=== PATIENT | male | born 1950 | race African-American/Black ===

== ENCOUNTER 2016-08-09 09:57 | Inpatient (IN) ==
[2016-08-09] MEDS ORDERED: ONDANSETRON 4 MG/2 ML VIAL IV STA (10:21)
[2016-08-09] MEDS ORDERED: hydrALAZINE 20 MG/1 ML VIAL IV STA (10:21)
[2016-08-09] MEDS ORDERED: ASPIRIN 325 MG TABLET PO STA (10:21)
[2016-08-09] MEDS ORDERED: NITROGLYCERIN 2% OINT 1 INCH/GM PACK TOP STA (10:21)
[2016-08-09] MEDS ORDERED: MORPHINE 2 MG/1 ML SYRINGE IV STA (10:21)
--- NOTE | 2016-08-09 10:26 | EKG Report ---
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
--- NOTE | 2016-08-09 10:44 | Emergency Department Note ---
Darryn Holley Brittany, am scribing for, and in the presence of, Jaret Hudson MD 10:28. Becca Holley Charles R, MD, personally performed the services described in this documentation, ascribed by Pinky Cates in my presence, and it is both accurate and complete 043 . Arrival - Arrival Chief Complaint: Chest Pain Stated Complaint: Chest Pains ED Nursing Triage Note: Pt c/o Chest pain, SOB worse with exertion, and cough x 1.5 wks. Mode of Arrival: Ambulatory Limitations: No Limitations Source: Patient, Family Time Seen by Provider: 08/09/16 10:17 - History of Present Illness HPI Narrative: This is an obese 65 y/o black male,who presents to the ED with c/o CP which started 1 week ago. He localizes the pain to the upper right chest area. He describes the pain as a pressure type of pain and rates the pain an 8 out of 10. He states he is SOB with the chest pain. He reports exertion makes the chest pain and dyspnea worse. Pt has no other complaints/pain in the ED at this time. Pt has a PMHx of ME, GERD, renal failure, HTN, and obstructive sleep apnea. Pt denies a surgical hx. Pt denies a family medical Hx. Pt denies a social Hx. Onset (ago): week(s) (Started 1 week ago) Consistency: constant Severity: moderate Severity scale (1-10): 8 Quality: other (pressure) Allergies/Adverse Reactions: Allergies Allergy/AdvReac Type Severity Reaction Status Date / Time Penicillins Allergy RASH Verified 08/09/16 10:06 Home Medications: Home Medications Medication Instructions Recorded Confirmed Type Allopurinol 300 mg PO DAILY 08/09/16 08/09/16 History Atorvastatin [Lipitor] 10 mg PO BEDTIME 08/09/16 08/09/16 History Finasteride [Proscar] 5 mg PO DAILY 08/09/16 08/09/16 History Fluticasone 50 Mcg Nasal [place] 2 spray BOTH NARES DAILY 08/09/16 08/09/16 History [Flonase Nasal [place]] Furosemide Tab [Lasix Tab] 40 mg PO TID 08/09/16 08/09/16 History Magnesium Oxide [Magnesium] 400 mg PO DAILY 08/09/16 08/09/16 History Minoxidil 5 mg PO DAILY 08/09/16 08/09/16 History Nebivolol [Bystolic] 40 mg PO DAILY 08/09/16 08/09/16 History Omeprazole 20 mg PO QAM 08/09/16 08/09/16 History Potassium Chloride [K-Tab ER] 10 meq PO BID W/MEALS 08/09/16 08/09/16 History Tamsulosin [Flomax] 0.4 mg PO PC SUPPER 08/09/16 08/09/16 History Valsartan/Hydrochlorothiazide 1 each PO QAM 08/09/16 08/09/16 History [Valsartan-Hctz 320-25 mg Tab] Warfarin [Coumadin] 7.5 mg PO DAILY 08/09/16 08/09/16 History amLODIPine [Norvasc] 5 mg PO DAILY 08/09/16 08/09/16 History Review of System - Review of System 12 point system: reviewed and no additional remarkable complaints except as stated - Review of System Cardiovascular: Present: chest pain, dyspnea on exertion Medical,Surgical,& Family Hx - Medical History Cardio: History of: Hypertension, ME, Cardiovascular Problems ([place]) Respiratory: History of: Obstructive Sleep Apnea Renal: History of: Renal Failure (Dr Lovell No Dialysis) Gastrointestinal: History of: GERD - Social History Smoking Status: Never smoker Exam Vital Signs: Vital Signs Temperature 97.8 F 08/09/16 10:04 Pulse Rate 50 L 08/09/16 10:04 Respiratory Rate 24 08/09/16 10:04 Blood Pressure 201/95 08/09/16 10:04 O2 Sat by Pulse Oximetry 98 08/09/16 10:04 - General General appearance: alert, in no apparent distress, obese - Head Head exam: Present: atraumatic, normocephalic, normal inspection - Eye Eye exam: Present: normal appearance, PERRL, EOMI. Absent: nystagmus, miosis, mydriasis - ENT ENT exam: Present: normal exam, normal oropharynx, mucous membranes moist - Neck Neck exam: Present: normal inspection, full ROM, trachea midline. Absent: tenderness, meningismus, lymphadenopathy, thyromegaly - Chest Chest inspection: Present: normal inspection, symmetric chest wall rise. Absent : tenderness, rash, abscess - Respiratory Respiratory exam: Present: rales (Bibasilar rales) - Cardiovascular Cardiovascular exam: Present: normal rhythm, bradycardia, normal heart sounds - Abdominal Exam Abdominal exam: Present: soft, normal bowel sounds. Absent: distention, tenderness, guarding, rebound, rigidity - Rectal Exam Rectal exam: Present: deferred - Extremities Exam Extremities exam: Present: normal capillary refill, pedal edema (+2 lower extermity pedal edeam). Absent: tenderness, joint swelling, calf tenderness - Back Exam Back exam: Present: normal inspection, full ROM. Absent: tenderness, muscle spasm, rashes - Neurological Exam Neurological exam: Present: alert, oriented X3, CN II-XII intact. Absent: motor sensory deficit - Psychiatric Psychiatric exam: Present: normal affect, normal mood. Absent: depressed, agitated, anxious, manic - Skin Skin exam: Present: warm, dry, intact, normal color. Absent: rash, cyanosis, diaphoresis, erythema, pallor, mottled Course - Consultations Consultation #1: Spoke to Dr. Richards will admit the patient. We did 2 EKGs because there is change noticed in the emergency room. Patient does not currently have any chest pain on the second EKG. There is some mild T-wave inversions or ST segment changes. She recommended placing to the hospital for admission she will evaluate him further this is also her patient, but there is no evidence of any ST elevation ME at this current time Time: 11:45 Results - Labs CBC & BMP: 08/09/16 11:03 08/09/16 11:03 - Diagnostic Findings Procedure: Chest x-ray: report reviewed by me (Moderate cardiomegaly without clara pulmonary edema. ) Critical Care Time Critical Care Time: Yes Total Critical Care Time: 60 Disposition Clinical Impression: Chest pain, Unstable angina, Hypertensive urgency, Bradycardia, Abnormal EKG, Chronic renal failure Case discussed with: patient, patient's family Disposition: Still a Patient Condition: Guarded Time of Disposition: 11:46
[2016-08-09 11:12] LABS: Basophils % 0.4 % (0.0-0.8); Eosinophils # 0.2 10*3/uL (0.0-0.87); Eosinophils % 4.8 % (0.00-10.9); Hematocrit 40.5 VOL% (42.0-52.0); Hemoglobin 12.9 GM/DL (14.0-18.0); Immature Granulocytes % 0.2 %; Immature Granulocytes Absolute 0.01 #; Lymphocytes # 1.2 10*3/uL (1.4-4.0); Mean Corpuscular HGB Conc 31.9 GM/DL (32-36); Mean Corpuscular Hemoglobin 27 PG (27-34); Mean Corpuscular Volume 84.2 FL (87-102); Mean Platelet Volume 12.2 FL (9.6-12.0); Monocytes # 0.3 10*3/uL (0.11-0.8); Neutrophils % 62.6 % (38.7-73.9); Platelet Count 173 T/CUMM (130-400); Red Blood Count 4.81 MC/CUMM (3.8-5.5); Red Cell Distribution Width 14.3 % (9.3-17.3); White Blood Count 4.8 T/CUMM (4-12)
--- NOTE | 2016-08-09 11:14 | XRay Report ---
XR chest 1V portable Indication: Chest pain Comparison: None Technique: Frontal views of the chest Findings: Moderate cardiomegaly. Chronic change of the lungs without focal consolidation, pleural effusion, or pneumothorax. Osseous and surrounding soft tissue structures demonstrate no acute abnormality. IMPRESSION: Moderate cardiomegaly without clara pulmonary edema. PROCEDURE INTERPRETED AT [facility] DEPARTMENT OF RADIOLOGY Final Report Signed by: Dr Dick Holbrook
[2016-08-09 11:20] LABS: INR 1.2; PT Patient Result 13.1 SECS
[2016-08-09] MEDS ORDERED: ASPIRIN 325 MG TABLET ONE (11:33)
[2016-08-09] MEDS ORDERED: NITROGLYCERIN 2% OINT 1 INCH/GM PACK TOP ONE (11:33)
[2016-08-09] MEDS ORDERED: hydrALAZINE 20 MG/1 ML VIAL ONE (11:33)
[2016-08-09] MEDS ORDERED: MORPHINE 2 MG/1 ML SYRINGE ONE (11:33)
[2016-08-09] MEDS ORDERED: ONDANSETRON 4 MG/2 ML VIAL ONE (11:40)
[2016-08-09 11:41] LABS: Albumin 3.2 G/DL (3.4-5.0); Bilirubin,Total 0.5 MG/DL (0.2-1.0); Calcium 8.3 MG/DL (8.5-10.1); Magnesium 1.7 MG/DL (1.8-2.4); Osmolality,Calculated 294.8 MOS/KG (273-304); Potassium 4.3 MMOL/L (3.5-5.1)
[2016-08-09] MEDS ORDERED: MAGNESIUM CHLORIDE 64 MG TABLET PO STA (11:47)
[2016-08-09] MEDS ORDERED: MAGNESIUM CHLORIDE 64 MG TABLET PO ONE (11:50)
--- NOTE | 2016-08-09 13:03 | Cardiology History & Physical ---
<Alejandra Chou E - Last Filed: 08/09/16 13:03> Assessment and Plan - Time spent with patient Time spent with patient: Greater than 30 minutes (1) Hx pulmonary embolism Status: Chronic Assessment and plan: SEE PLAN OF CARE LISTED BELOW Current Visit: Yes (2) High risk medication use Status: Chronic Assessment and plan: SEE PLAN OF CARE LISTED BELOW Current Visit: Yes (3) Dyslipidemia Status: Chronic Assessment and plan: SEE PLAN OF CARE LISTED BELOW Current Visit: Yes (4) Morbid obesity Status: Chronic Assessment and plan: SEE PLAN OF CARE LISTED BELOW Current Visit: Yes (5) Sleep apnea Status: Chronic Assessment and plan: SEE PLAN OF CARE LISTED BELOW Current Visit: Yes (6) Shortness of breath Status: Acute Assessment and plan: SEE PLAN OF CARE LISTED BELOW Current Visit: Yes (7) Bradycardia Status: Acute Current Visit: Yes (8) Chest pain Status: Acute Assessment and plan: SEE PLAN OF CARE LISTED BELOW Current Visit: Yes (9) Chronic renal failure Status: Chronic Assessment and plan: SEE PLAN OF CARE LISTED BELOW Current Visit: Yes Qualifiers: Chronic kidney disease stage: stage 4 (severe) Qualified Code(s): N18.4 - Chronic kidney disease, stage 4 (severe) History of Present Illness Chief complaint: Chest pain, shortness of breath History of present illness: Patient is being seen in the emergency department Mr. Quintana is a 65 year old male routinely followed by Dr. Fernanda Richards. Risk factors include: Hypertension, dyslipidemia, morbid obesity, sedentary lifestyle, history of CVA. He also has a history of pulmonary embolism 2000 for which she has taken Coumadin since that time. Also history of obstructive sleep apnea, reports good compliance. History of chronic renal insufficiency, class IV, followed by Dr. Lovell. Patient presented to the emergency department at [facility] today after experiencing excruciating shortness of breath and chest heaviness this morning. In retrospect, patient identifies that he has had chest discomfort and shortness of breath for approximately 1 week. However, this morning while walking across a parking lot he began to experience excruciating symptoms located on the right side of his chest. He is unable to write the discomfort on a scale of 1-10. There was no radiation, nausea or vomiting. He did become somewhat diaphoretic he reports. He acknowledges that it was more painful when taking a deep breath initially but this is improved as well. Although it has been occurring intermittently for the past week, he states that walking certainly does re-create the discomfort. Rest and Nitropaste today relieve the discomfort. He is currently chest pain-free. Tropoinin, first draw, negative. EKG does not reveal a STEMI. Patient has a history of pulmonary embolism diagnosed around 2000. He reports he is taking Coumadin ever since. He is uncertain if he was ever diagnosed with a second or recurrent pulmonary embolism. Denies a history of DVT. His INR subtherapeutic at 1.2 on arrival. He reports good compliance having not missed any of his scheduled doses of Coumadin. He has had no recent change in his bilateral lower extremity swelling. He has mild chronic edema of his lower extremities but does not recognize that this is been worse or that any extremity has been tender recently. Creatinine 5.4 today. He actually had an appointment and saw Dr. Lovell this morning. Her patient's report, Dr. Lovell recommended begin the process for hemodialysis. Patient is reluctant at this time. I have discussed with Dr. Fernanda Richards. Given the patient's history of prior pulmonary embolism with subtherapeutic INR, troponin within normal limits , we will proceed with VQ lung scan immediately. I will verify the patient has had aspirin 325 mg orally as well as Lovenox 30 mg subcu (given his severe renal insufficiency). Will await further recommendations from Dr. Richards Most recent cardiac catheterization occurred January 22, 2014 with the following impression noted: 1. Technically difficult study due to habitus, large coronary arteries with brisk runoff, underlying renal insufficiency. 2. Moderate coronary atherosclerosis with 50% angiographic stenosis of the mid LAD that was difficult to lie out, FFR 0.94. 3. Right dominant coronary arteries. 4. Ejection fraction 55%. 5. Angiographically normal right iliac artery without evidence of vascular complication Most recent echocardiogram September 02, 2013 reveals the following: Normal LV systolic function without significant valvular abnormality. Moderate concentric left ventricular hypertrophy with moderate left atrial enlargement noted ASSESSMENT/PLAN: 1. CHEST PAIN -certainly this could be a component of angina. First draw from troponin is negative. Will proceed with VQ lung scan given the patient's severe renal insufficiency. 2. HISTORY OF PULMONARY EMBOLISM -subtherapeutic INR. Will adjust medications accordingly during the hospital stay. He may be better suited for NOAC. 3. HYPERTENSION -adjust medications accordingly during the hospital stay. Avoiding KISHORE inhibitors due to fear of worsening his renal insufficiency 4. DYSLIPIDEMIA -continue lipid-lowering agent. Lipid profile in the morning 5. CLASS IV CRI -will consult Dr. Lovell as needed during the hospital stay 6. OBSTRUCTIVE SLEEP APNEA -discussed with his . She will ask family members to bring his CPAP device to be used every night while hospitalized. 7. CLASS III OBESITY - dietary instruction prior to discharge. 8. SOB - multifactorial but we will start with VQ Lung scan as troponin is negative. 9. BRADYCARDIA - appears to be sinus. Hold gabrielle blocking agents and adjust meds during hospital stay. Home Medications Medication Instructions Recorded Confirmed Type Allopurinol 300 mg PO DAILY 08/09/16 08/09/16 History Atorvastatin [Lipitor] 10 mg PO BEDTIME 08/09/16 08/09/16 History Finasteride [Proscar] 5 mg PO DAILY 08/09/16 08/09/16 History Fluticasone 50 Mcg Nasal [place] 2 spray BOTH NARES DAILY 08/09/16 08/09/16 History [Flonase Nasal [place]] Furosemide Tab [Lasix Tab] 40 mg PO TID 08/09/16 08/09/16 History Magnesium Oxide [Magnesium] 400 mg PO DAILY 08/09/16 08/09/16 History Minoxidil 5 mg PO DAILY 08/09/16 08/09/16 History Nebivolol [Bystolic] 40 mg PO DAILY 08/09/16 08/09/16 History Omeprazole 20 mg PO QAM 08/09/16 08/09/16 History Potassium Chloride [K-Tab ER] 10 meq PO BID W/MEALS 08/09/16 08/09/16 History Tamsulosin [Flomax] 0.4 mg PO PC SUPPER 08/09/16 08/09/16 History Valsartan/Hydrochlorothiazide 1 each PO QAM 08/09/16 08/09/16 History [Valsartan-Hctz 320-25 mg Tab] Warfarin [Coumadin] 7.5 mg PO DAILY 08/09/16 08/09/16 History amLODIPine [Norvasc] 5 mg PO DAILY 08/09/16 08/09/16 History Allergies Allergy/AdvReac Type Severity Reaction Status Date / Time Penicillins Allergy RASH Verified 08/09/16 10:06 Review of systems: REVIEW OF SYSTEMS: - Constitutional Constitutional: Present: Fatigue. Absent: syncope, anorexia, night sweats - EENT Eyes: Absent: blurry vision, loss of vision, diplopia Ears: Absent: decreased hearing, ear pain, ear discharge - Cardiovascular Cardiovascular: Present: chest pain with exertion, dyspnea on exertion, edema, chest pain with deep breath. Denies palpitations or claudication - Respiratory Respiratory: Present: VALENTINO, denies cough, hemoptysis. Absent: wheezing, change in phlegm color - Gastrointestinal Gastrointestinal: Denies: constipation. Absent: abdominal pain, hematemesis, hematochezia, melena, change in bowel habits, nausea - Genitourinary Genitourinary: Absent: difficulty urinating, dysuria, urinary hesitancy, flank pain - Musculoskeletal Musculoskeletal: Present: back pain, knee pain absent: joint swelling, muscle cramps, muscle weakness - Neurological Neurological: Present: normal gait without frequent falls. Absent: dizziness, hemiparesis - Psychiatric Psychiatric: Absent: anxiety, depression, difficulty concentrating - Endocrine Endocrine: Present: fatigue. Absent: cold intolerance, heat intolerance, polyuria, polyphagia, polydipsia - Hematologic/Lymphatic Hematologic/Lymphatic: Present: easy bruising. Absent: easy bleeding -Integumentary Integumentary: Absent: lesions, rashes, skin breakdown Medical,Surgical,& Family Hx - Medical History Cardio: History of: Hypertension No history of: Cardiac Dysrhythmia Endocrine: History of: Dyslipidemia Respiratory: History of: Obstructive Sleep Apnea, Pulmonary Embolism Renal: History of: Renal Failure (Dr Lovell No Dialysis) Gastrointestinal: History of: GERD No history of: Gastrointestinal Bleed, Hematochezia, Gastrointestinal Cancer - Surgical History Cardiac Surgeries: Sugical HX of: Cardiac Catheterization Abdominal Surgeries: Surgical HX of: Cholecystectomy - Social History Smoking Status: Never smoker Have you smoked in the last 12 months: No Frequency of Alcohol Use: None Marital Status: Lives With:: Spouse Functional capacity: independent ambulation Cardiology Physical Exam - Constitutional Vitals: Vital Signs Temp Pulse Resp BP Pulse Ox 97.8 F 50 L 22 201/95 98 08/09/16 12:17 08/09/16 12:17 08/09/16 12:24 08/09/16 12:17 08/09/16 10:04 Exam: General: [Appears well with no apparent distress.] [Pleasant and cooperative. ] [Appears comfortable.] HEENT: [Bilateral arcus, normocephalic, atraumatic. Mucous membranes moist. No jaundice noted. Conjunctiva moist and clear, sclerae anicteric] Neck: Difficult to assess for JVD due to habitus. No thyromegaly or lymphadenopathy noted. No carotid bruit appreciated Cardiac: [Distant tones but regular rate and rhythm.] [No obvious murmur rub or gallop.] Chest nontender to touch. Lungs: [Clear to auscultation without accessory muscle use to assist the respiratory pattern.] Using oxygen intermittently Abdomen: Soft, bowel sounds normoactive. Nontender and nondistended. No abdominal bruit or thrill noted. No masses noted. Musculoskeletal: No fluid collection. Decreased range of motion is noted. Extremities: No clubbing, cyanosis noted. [Trace bilateral lower extremity edema] Upper extremity pulses 2+. Lower extremity pulses 1+. Capillary refill less than 3 seconds. Skin: No unusual lesions or rashes. No skin breakdown appreciated. Neuro: Awake, alert and oriented 3. Moves all extremities well without hemiparesis or paralysis. No essential tremor is appreciated. Result/EKG - Labs CBC & BMP: 08/09/16 11:03 08/09/16 11:03 Lab Results: I have reviewed the past 24 hour labs - Diagnostic Findings Procedure: Chest x-ray: report reviewed by me - EKG EKG results: interpreted by mt EKG shows: sinus rhythm <Fernanda Richards - Last Filed: 08/09/16 14:44> History of Present Illness History of present illness: I have personally interviewed and evaluated the patient, reviewed the chart and discussed medical decision-making with Practitioner José Antonio. I have read this note and agree with her documentation here in. VQ scan overall was indeterminate. He will not necessarily change her management since he has been on chronic anticoagulation. We will need to restart this when it is appropriate. We are going to start him on a heparin drip to cover both possible pulmonary wasn't an acute coronary syndrome. His symptoms are concerning for worsening coronary disease we discussed at length the risks, role and benefits of cardiac catheterization emphasizing the risk of worsening renal failure, possibly requiring dialysis. We discussed that this was a highly likely probability from cardiac CABG in. In general he does not want to go hemodialysis call if he doesn't have to". However, at the conclusion of our discussion he accepts the risks of dialysis and sepsis this clinically indicated. We will consult Dr. Lovell. I'm going to calcification with minimal carbonated IV fluids, we will try to minimize the amount of contrast he receives. Echocardiogram at the bedside and I will report that in the echo system. I also discussed this with the patient's and we discussed importance with point and with Coumadin follow-up. I emphasized that his INR must always be checked at a minimum once a month when everything is going well, even if no DrFang has directed this. We will establish him in the Coumadin clinic at discharge. Cardiology Physical Exam - Constitutional Vitals: Vital Signs Temp Pulse Resp BP Pulse Ox 97.8 F 52 L 20 164/78 97 08/09/16 13:30 08/09/16 13:30 08/09/16 13:30 08/09/16 13:30 08/09/16 13:30 Intake and Output 08/08/16 08/09/16 08/09/16 23:59 07:59 15:59 Other: Weight 166.015 kg Patient Weight 08/09/16 23:59 Weight 166.015 kg Exam: Bilateral lower extremity edema is 1+. Result/EKG - Labs CBC & BMP: 08/09/16 11:03 08/09/16 11:03
[2016-08-09] MEDS ORDERED: MAGNESIUM SULF RIDER 4 GM in PREMIX 1 EACH IV PRN (13:29)
[2016-08-09] MEDS ORDERED: MORPHINE 2 MG/1 ML SYRINGE IV PRN (13:29)
[2016-08-09] MEDS ORDERED: GLUCAGON 1 MG VIAL IM PRN (13:29)
[2016-08-09] MEDS ORDERED: MAGNESIUM SULF RIDER 2 GM in PREMIX 1 EACH IV PRN ×2 (13:29→14:42)
[2016-08-09] MEDS ORDERED: hydrALAZINE 20 MG/1 ML VIAL IV PRN (13:29)
[2016-08-09] MEDS ORDERED: ONDANSETRON 4 MG/2 ML VIAL IV PRN (13:29)
[2016-08-09] MEDS ORDERED: DEXTROSE 50% 25 GM/50 ML VIAL IV PRN (13:29)
[2016-08-09] MEDS ORDERED: SODIUM CHLORIDE 0.9% 1,000 ML IV SCH (13:29)
[2016-08-09] MEDS ORDERED: POTASSIUM CHLORIDE 20 MEQ TABLET PO PRN (13:29)
--- NOTE | 2016-08-09 13:34 | EKG Report ---
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
--- NOTE | 2016-08-09 13:35 | Nuclear Medicine Report ---
NM lung scan vent and per Indication: Chest pain. History of PE. Shortness of breath. VENTILATION/PERFUSION LUNG SCAN: Planar imaging of the lungs was obtained after the IV administration of 5 mCi technetium 99m labeled MAA, and aerosol administration of 40 mCi technetium 99m labeled DTPA. Comparison: None. Findings: Imaging limited to the anterior planes. There is a large perfusion defect involving the anterior segment right upper lobe that is normal on ventilatory imaging and shows no regional abdomen on the on chest x-ray. No other perfusion defects are shown. Impression: Based on modified PIOPED criteria, intermediate probability for PE (20-79% probability of acute PE), anterior segment right upper lobe. PROCEDURE INTERPRETED AT [facility] DEPARTMENT OF RADIOLOGY Final Report Signed by: Judd Palomares M.D.
[2016-08-09] MEDS ORDERED: ENOXAPARIN 30 MG/0.3 ML SYRINGE SUBCUT ONE (13:41)
[2016-08-09] MEDS ORDERED: ENOXAPARIN 30 MG/0.3 ML SYRINGE ONE (13:47)
[2016-08-09] MEDS ORDERED: POTASSIUM CHLORIDE RIDER 10 MEQ in PREMIX 1 EACH IV PRN (14:42)
--- NOTE | 2016-08-09 15:30 | Ultrasound Report ---
US venous doppler LE BI Indication: Chest pain, SOB, and noncompliance with anticoagulation. Comparison: None. Technique: Grayscale, spectral, and color Doppler interrogation of the bilateral lower extremity veins was performed. Augmentation and compression was performed. Findings: Grayscale, color Doppler, and pulsed Doppler evaluation of the veins of the bilateral lower extremity demonstrate no evidence of deep venous thrombosis. IMPRESSION: No evidence of deep venous thrombosis in the bilateral lower extremity. PROCEDURE INTERPRETED AT [facility] DEPARTMENT OF RADIOLOGY Final Report Signed by: Dr Dick Holbrook
[2016-08-09] MEDS: HEPARIN DRIP 25,000 UNITS/500 ML PREMIX IV SCH (16:07)
[2016-08-09] MEDS: ACETYLCYSTEINE 600 MG CAPSULE PO SCH ×2 (16:08→21:22)
[2016-08-09] MEDS: SODIUM BICARB INJ 100 MEQ in SODIUM CHLORIDE 0.45% 1,000 ML IV SCH (16:08)
[2016-08-09] MEDS: FUROSEMIDE 40 MG TABLET PO SCH ×2 (16:08→21:22)
[2016-08-09] MEDS: INSULIN REGULAR 100 UNIT/ML SUBCUT SCH ×2 (16:57→21:22)
[2016-08-09] MEDS: TAMSULOSIN 0.4 MG CAPSULE PO SCH (17:46)
[2016-08-09] MEDS: NITROGLYCERIN 2% OINT 1 INCH/GM PACK TOP SCH (17:47)
[2016-08-09] MEDS: POTASSIUM CHLORIDE 10 MEQ TABLET PO SCH (17:47)
[2016-08-09] MEDS: ATORVASTATIN 10 MG TABLET PO SCH (21:22)
[2016-08-09 23:57] LABS: INR 1.3; PT Patient Result 14.3 SECS
[2016-08-10 00:13] LABS: Partial Thromboplastin Time 145.9 SECS (0-40)
[2016-08-10] MEDS: NITROGLYCERIN 2% OINT 1 INCH/GM PACK TOP SCH ×4 (00:36→17:35)
[2016-08-10] MEDS: SODIUM BICARB INJ 100 MEQ in SODIUM CHLORIDE 0.45% 1,000 ML IV SCH ×2 (03:04→17:34)
--- NOTE | 2016-08-10 03:06 | ECHO Report ---
Nicholas Quintana Exam Date: 08/09/2016 14:04 Referring Physician: Technologist: Belkis Gatica EVANGELIST Age: 65 Ht (in): 73 Wt (lb): 371 Gender: M Exam Location: [facility] Echo Indications: Shortness of breath, Chest pain, unspecified, Hypertensive HTN, Sleep apnea, Morbid (severe) obesity due to excess calories, Dyslipidemia, High risk meds, Chronic kidney disease, stage 4 (severe), Bradycardia, unspecified BP: 201 / 95 HR: 47 Rhythm: Sinus Technical Quality: Poor IMPRESSIONS Normal LV systolic function, ejection fraction 60%. Grade 1/4 diastolic dysfunction. Moderate to severe concentric left ventricular hypertrophy. Moderate left atrial enlargement. Mild mitral, aortic and tricuspid regurgitation. Pulmonary artery pressure estimated at 60 mmHg. MEASUREMENTS (Male / Female) Normal Values 2D ECHO LV Diastolic Diameter PLAX 5.1 cm 4.2 - 5.9 / 3.9 - 5.3 cm LV Systolic Diameter PLAX 2.4 cm LV Fractional Shortening PLAX 52.4 % IVS Diastolic Thickness 1.6 cm 0.6 - 1.0 / 0.6 - 0.9 cm LVPW Diastolic Thickness 2.0 cm 0.6 - 1.0 / 0.6 - 0.9 cm RV Internal Dim ED PLAX 2.6 cm Aortic Root Diameter 3.3 cm LA Systolic Diameter LX 5.5 cm 3.0 - 4.0 / 2.7 - 3.8 cm DOPPLER TR Peak Velocity 352.0 cm/s TR Peak Gradient 49.6 mmHg FINDINGS Left Ventricle Normal left ventricular cavity size. Moderate to severe left ventricular hypertrophy. Left ventricular ejection fraction is estimated at 60 %. Right Ventricle Normal size and function. Right Atrium Normal size. Left Atrium Moderately increased left atrial size. Mitral Valve Morphologically normal mitral valve. Mild mitral valve regurgitation. Aortic Valve The aortic valve is trileaflet and has normal motion. Mild aortic valve regurgitation. Tricuspid Valve Morphologically normal tricuspid valve. Mild tricuspid valve regurgitation. Tricuspid regurgitation velocities suggest a PAP of 60 mmHg. Pulmonic Valve Not well seen. Pericardium No significant effusion. Aorta Normal caliber. Fernanda Richards MD (Electronically Signed) Final Date: 10 August 2016 03:05
[2016-08-10] MEDS ORDERED: DIAZEPAM 5 MG TABLET PO ONE (07:00)
[2016-08-10] MEDS ORDERED: diphenhydrAMINE CAP 25 MG CAPSULE PO ONE (07:00)
[2016-08-10 07:02] LABS: Basophils % 0.2 % (0.0-0.8); Eosinophils # 0.3 10*3/uL (0.0-0.87); Eosinophils % 5.1 % (0.00-10.9); Immature Granulocytes % 0.4 %; Immature Granulocytes Absolute 0.02 #; Lymphocytes # 1.3 10*3/uL (1.4-4.0); Lymphocytes % 24.8 % (21.2-54.2); Mean Corpuscular HGB Conc 32.4 GM/DL (32-36); Mean Corpuscular Hemoglobin 27 PG (27-34); Mean Platelet Volume 12.5 FL (9.6-12.0); Monocytes # 0.3 10*3/uL (0.11-0.8); Monocytes % 6.3 % (1.7-12.7); Neutrophils # 3.3 10*3/uL (1.4-7.4); Neutrophils % 63.2 % (38.7-73.9); Platelet Count 165 T/CUMM (130-400); Red Blood Count 4.51 MC/CUMM (3.8-5.5); Red Cell Distribution Width 14.3 % (9.3-17.3); White Blood Count 5.3 T/CUMM (4-12)
--- NOTE | 2016-08-10 07:23 | EKG Report ---
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
[2016-08-10 07:41] LABS: Albumin 2.8 G/DL (3.4-5.0); Bilirubin,Total 0.8 MG/DL (0.2-1.0); Calcium 8.1 MG/DL (8.5-10.1); Magnesium 1.7 MG/DL (1.8-2.4); Risk Ratio 2.26; Total Protein 6.2 G/DL (6.4-8.3); VLDL CHOLESTEROL 9.8 MG/DL
[2016-08-10] MEDS: INSULIN REGULAR 100 UNIT/ML SUBCUT SCH ×4 (07:43→20:56)
[2016-08-10 08:02] LABS: INR 1.4; PT Patient Result 15.4 SECS
--- NOTE | 2016-08-10 08:31 | XRay Report ---
Exam: Chest 2 views Date: August 10, 2016 at 8:12 AM Comparison: Chest one view portable August 09, 2016 Reason: Shortness of breath Findings: The cardiac silhouette is again enlarged. No focal consolidation, pneumothorax or pleural effusion is identified. No acute osseous process is seen. Surgical clips are noted within the right abdomen. Impression: 1. Cardiomegaly. 2. No acute pulmonary process is identified. PROCEDURE INTERPRETED AT [facility], [place] DEPARTMENT OF RADIOLOGY Final Report Signed by: Dr. Christ Pakr
[2016-08-10 08:37] LABS: Partial Thromboplastin Time > 320.0 SECS (0-40)
[2016-08-10] MEDS ORDERED: PANTOPRAZOLE 40 MG TABLET PO SCH (09:00)
[2016-08-10] MEDS: ASPIRIN EC 325 MG TABLET PO SCH (09:38)
[2016-08-10] MEDS: amLODIPine 5 MG TABLET PO SCH (09:38)
[2016-08-10] MEDS ORDERED: SODIUM BICARBONATE 2.4 MEQ/5 ML VIAL ONE (09:48)
[2016-08-10] MEDS ORDERED: HEPARIN/NACL 0.9% 2 UNITS/ML 1,000 ML IV ONE (09:48)
[2016-08-10] MEDS ORDERED: LIDOCAINE 1% 20 ML VIAL ONE (09:48)
[2016-08-10] MEDS ORDERED: MIDAZOLAM 2 MG/2 ML VIAL ONE (09:55)
[2016-08-10] MEDS ORDERED: fentaNYL 100 MCG/2 ML VIAL ONE (09:56)
--- NOTE | 2016-08-10 10:10 | History and Physical Update ---
Sedation H&P Update - History and Physical H&P was reviewed, the patient examined and there: are no changes in the patients condition since last H&P was completed. - Dictation Physical: refer to H&P completed by admitting physician - Physical Exam Mental Status: alert and oriented Heart: regular rate and rhythm Lung: clear to auscultation Abdomen: within normal limits Vitals: within normal limits - Sedation Plan for Sedation: moderate Patient Consent: Procedure disscussed with patient and patinet has consented., Risks and benefits were discussed with patient,including infection,, bleeding, injury to surrounding structures, seizure, temporary nerve, Patient understands and accepts potential risks/benefits and agrees to, proceed. ASA Class: IV Airway Assessment: Class III: Soft palate, base of uvula visible
[2016-08-10] MEDS ORDERED: ACETAMINOPHEN/CODEINE 300-30 MG TABLET PO PRN (10:52)
[2016-08-10] MEDS ORDERED: ACETAMINOPHEN 325 MG TABLET PO PRN (10:52)
[2016-08-10] MEDS ORDERED: NITROGLYCERIN SL 0.4 MG TABLET SL PRN (10:52)
--- NOTE | 2016-08-10 11:14 | Event Note ---
Evening was uneventful. Crit catheterization did not show any significant obstructive coronary artery disease. His symptoms may have been from pulmonary embolism, VQ scan was not very helpful. However he does have morbid obesity, history of pulmonary embolism and was profoundly subtherapeutic on his INR. He will need treatment with anticoagulation regardless, and given his renal failure it would not be worthwhile to pursue a CT scan to further define this. We have also really started his proton pump inhibitor. We will observe his renal function and restart his anticoagulation.
--- NOTE | 2016-08-10 11:16 | Cardiology Operative Report ---
Date of Procedure:: 08/10/16 Pre-op diagnosis: CAD, CP, SOB Post-op diagnosis: other Procedure: 1. Selective left and right coronary angiography. 2. Left heart catheterization with left ventriculogram. 3. Right iliac angiography to rule out vascular complications. 4. Application mucostasis device to the right femoral arteriotomy site. Impression: 1. Mild coronary atherosclerosis. 2. Right dominant coronary arteries. 3. Angiographically normal right iliac artery without evidence of vascular complications. Plan: 1. Medical management. 2. Noncardiac workup. Equipment: Diagnostic 6 Amharic JL4, JR4, pigtail catheters. Hemodynamics: Aortic pressure 147/77 mmHg, left ventricular pressure 145/8 mmHg, LVEDP 17 mmHg Sedation: Versed 1 mg, fentanyl 25 g. Procedure: After informed consent was obtained the patient was prepped and draped in sterile fashion. The right groin was infiltrated with 1% lidocaine and the right femoral artery was accessed via modified Seldinger technique using a micropuncture needle and a 6 Amharic femoral arterial sheath was placed. All catheter exchanges were performed over a guidewire under fluoroscopic guidance. Diagnostic 6 Amharic JL4 and JR4 catheters were advanced to the left and right coronary arteries respectively and multiple cineangiograms were performed in varying degrees of obliquity and angulation. Thereafter a pigtail catheter was advanced into the left ventricle where hemodynamics were obtained. At conclusion of the procedure right iliac angiography was performed to rule out vascular complications. Findings: 1. The left main artery is angiographically normal. 2. The left anterior descending artery extends to the apex and wraps around. There are mild luminal irregularities with up to 30% stenosis in the midsegment. There is no significant stenosis. 3. There is an intermediate ramus branch of moderate caliber, free of significant disease. 4. The circumflex artery is nondominant. It gives rise to 3 marginal branches , and has mild luminal irregularities but no significant stenosis. 5. The right coronary artery it is a dominant vessel with mild luminal irregularities but no significant stenosis. 6. No significant aortic stenosis. 9. The right iliac artery is angiographically normal without evidence of vascular complications. Contrast use: Visipaque 76 cc Fluoro time: 2.8 minutes Complications: none Specimens removed: none Devices implanted: Mynx Anesthesia: moderate conscious sedation Surgeon / Physician: Fernanda Richards Optical Instrument Assembler: none (Laine Cottles) Estimated blood loss: minimal Specimens: none sent Condition: stable Disposition: floor
[2016-08-10 12:23] LABS: INR 1.4; PT Patient Result 15.4 SECS
[2016-08-10 12:31] LABS: Partial Thromboplastin Time 94.8 SECS (0-40)
--- NOTE | 2016-08-10 13:28 | EKG Report ---
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
[2016-08-10] MEDS: FUROSEMIDE 40 MG TABLET PO SCH ×3 (14:09→20:58)
[2016-08-10] MEDS: ALLOPURINOL 300 MG TABLET PO SCH (14:10)
[2016-08-10] MEDS: VALSARTAN/HCTZ 160-12.5 MG TABLET PO SCH (14:10)
[2016-08-10] MEDS: MINOXIDIL 2.5 MG TABLET PO SCH (14:10)
[2016-08-10] MEDS: ACETYLCYSTEINE 600 MG CAPSULE PO SCH ×2 (14:10→20:58)
[2016-08-10] MEDS: POTASSIUM CHLORIDE 10 MEQ TABLET PO SCH ×2 (14:11→17:34)
[2016-08-10] MEDS: PANTOPRAZOLE 40 MG TABLET PO SCH (14:11)
[2016-08-10] MEDS: FLUTICASONE 50 MCG NASAL SPRAY 16 GM BOTTLE BOTH NARES SCH (14:11)
[2016-08-10] MEDS: MAGNESIUM OXIDE 400 MG TABLET PO SCH (14:11)
[2016-08-10] MEDS: FINASTERIDE 5 MG TABLET PO SCH (14:11)
[2016-08-10 16:49] LABS: INR 1.3; Partial Thromboplastin Time 38.1 SECS (0-40)
[2016-08-10] MEDS: TAMSULOSIN 0.4 MG CAPSULE PO SCH (17:35)
[2016-08-10] MEDS: WARFARIN 10 MG TABLET PO SCH (17:35)
[2016-08-10] MEDS: ATORVASTATIN 10 MG TABLET PO SCH (20:58)
[2016-08-10] MEDS: HEPARIN DRIP 25,000 UNITS/500 ML PREMIX IV SCH (22:19)
[2016-08-10 22:41] LABS: INR 1.3; PT Patient Result 13.5 SECS; Partial Thromboplastin Time 31.5 SECS (0-40)
[2016-08-11] MEDS: NITROGLYCERIN 2% OINT 1 INCH/GM PACK TOP SCH ×4 (00:28→17:03)
[2016-08-11] MEDS: SODIUM BICARB INJ 100 MEQ in SODIUM CHLORIDE 0.45% 1,000 ML IV SCH (04:29)
[2016-08-11 04:52] LABS: Basophils % 0.2 % (0.0-0.8); Eosinophils # 0.4 10*3/uL (0.0-0.87); Hematocrit 38.3 VOL% (42.0-52.0); Hemoglobin 12.4 GM/DL (14.0-18.0); Immature Granulocytes % 0.2 %; Immature Granulocytes Absolute 0.01 #; Lymphocytes % 20.3 % (21.2-54.2); Mean Corpuscular HGB Conc 32.4 GM/DL (32-36); Mean Corpuscular Hemoglobin 26 PG (27-34); Mean Corpuscular Volume 81.7 FL (87-102); Mean Platelet Volume 13.6 FL (9.6-12.0); Monocytes # 0.3 10*3/uL (0.11-0.8); Monocytes % 6.8 % (1.7-12.7); Neutrophils # 3.3 10*3/uL (1.4-7.4); Neutrophils % 65.5 % (38.7-73.9); Platelet Count 139 T/CUMM (130-400); Red Blood Count 4.69 MC/CUMM (3.8-5.5); Red Cell Distribution Width 14.3 % (9.3-17.3)
[2016-08-11 05:21] LABS: INR 1.3; PT Patient Result 14.3 SECS
[2016-08-11 05:30] LABS: Partial Thromboplastin Time 79.3 SECS (0-40)
[2016-08-11 06:30] LABS: Calcium 8.1 MG/DL (8.5-10.1); Osmolality,Calculated 291.3 MOS/KG (273-304); Potassium 4.1 MMOL/L (3.5-5.1)
[2016-08-11] MEDS: INSULIN REGULAR 100 UNIT/ML SUBCUT SCH ×4 (07:47→21:06)
[2016-08-11] MEDS: amLODIPine 5 MG TABLET PO SCH (08:11)
[2016-08-11] MEDS: VALSARTAN/HCTZ 160-12.5 MG TABLET PO SCH (08:11)
[2016-08-11] MEDS: PANTOPRAZOLE 40 MG TABLET PO SCH (08:11)
[2016-08-11] MEDS: MINOXIDIL 2.5 MG TABLET PO SCH (08:11)
[2016-08-11] MEDS: POTASSIUM CHLORIDE 10 MEQ TABLET PO SCH ×2 (08:12→17:02)
[2016-08-11] MEDS: FUROSEMIDE 40 MG TABLET PO SCH ×3 (08:12→21:10)
[2016-08-11] MEDS: ACETYLCYSTEINE 600 MG CAPSULE PO SCH ×2 (08:12→21:10)
[2016-08-11] MEDS: MAGNESIUM OXIDE 400 MG TABLET PO SCH (08:12)
[2016-08-11] MEDS: ALLOPURINOL 300 MG TABLET PO SCH (08:12)
[2016-08-11] MEDS: FLUTICASONE 50 MCG NASAL SPRAY 16 GM BOTTLE BOTH NARES SCH (08:12)
[2016-08-11] MEDS: ASPIRIN EC 325 MG TABLET PO SCH (08:12)
[2016-08-11] MEDS: FINASTERIDE 5 MG TABLET PO SCH (08:12)
[2016-08-11] MEDS: HEPARIN DRIP 25,000 UNITS/500 ML PREMIX IV SCH ×2 (10:20→13:55)
--- NOTE | 2016-08-11 10:23 | Event Note ---
Mr. Quintana is known to me and learned of his admission today when talking to Dr. Richards. He has undergone heart cardiac cath and did well. His creatinine today is stable at 5.3. He is currently having his anticoagulation improved. His INR is 1.3. We'll follow as an outpatient as scheduled and for now it certainly looks like he has tolerated his cardiac cath without renal injury.
[2016-08-11 16:28] LABS: INR 1.4; PT Patient Result 15.1 SECS
[2016-08-11 16:42] LABS: Partial Thromboplastin Time 136.8 SECS (0-40)
[2016-08-11] MEDS: TAMSULOSIN 0.4 MG CAPSULE PO SCH (17:02)
[2016-08-11] MEDS: WARFARIN 10 MG TABLET PO SCH (17:35)
--- NOTE | 2016-08-11 19:23 | Cardiology Progress Note ---
Bessy Holley April RN, am scribing for, and in the presence of, Fernanda Richards MD 19:23. Assessment and Plan (1) Bradycardia Status: Acute Current Visit: Yes (2) Chest pain Status: Acute Current Visit: Yes (3) Shortness of breath Status: Acute Current Visit: Yes (4) Chronic renal failure Status: Chronic Current Visit: Yes Qualifiers: Chronic kidney disease stage: stage 4 (severe) Qualified Code(s): N18.4 - Chronic kidney disease, stage 4 (severe) (5) Dyslipidemia Status: Chronic Current Visit: Yes (6) Hx pulmonary embolism Status: Chronic Current Visit: Yes (7) Morbid obesity Status: Chronic Current Visit: Yes (8) Sleep apnea Status: Chronic Current Visit: Yes Cardiology - PN: Subj Interval history: Mr. Quintana is seen resting in bed in no acute distress. He denies chest pain or shortness of breath. Oxygen is in use via nasal biprong. Heart cath done yesterday revealed no significant obstructive coronary artery disease. Dressing to right groin is dry and intact with no evidence of bruising or hematoma, pedal pulse palpable. The patient does tell me that the site has been oozing and the nurse recently changed the bandage which did have some bloody drainage on it. Patient is still receiving heparin infusion and he is on warfarin 10 mg p.o. daily. INR today is 1.3. Currently he is in sinus rhythm with heart rates in the 60s. It is unclear whether or not his presenting symptoms were related to possible underlying pulmonary embolism. Regardless he will need therapeutic anticoagulation because of his prior history of thrombosis. We are going to keep him in the hospital until his INR is more therapeutic. Because of his advanced renal failure, I'm not comfortable administering the newer anticoagulants. Exam (Progress Note) - Constitutional Vitals: Period Temp Pulse Resp BP Sys/Trimble Pulse Ox Last 24 Hr 97.8 F-98.8 F 47-58 16-20 128-151/67-81 93-100 General appearance: no acute distress, morbidly obese - Head Head exam: Absent: abrasion, hematoma - Eye Eye exam: Absent: periorbital swelling, laceration to eyelids - Respiratory Respiratory exam: Present: clear to auscultation bilaterally, other (Oxygen via nasal biprong). Absent: accessory muscle use, chest wall tenderness - Cardiovascular Cardiovascular exam: Present: regular rate and rhythm. Absent: rubs, tachycardia - GI/Abdominal GI/Abdominal exam: Present: normal bowel sounds, soft. Absent: distended, tenderness - Extremities Exam Extremities exam: Present: normal capillary refill, edema (Trace to bilateral lower extremity) - Back Exam Back exam: Absent: muscle spasm, vertebral tenderness - Neurological Exam Neurological exam: Present: alert, oriented X3 - Psychiatric Psychiatric exam: Present: normal affect, normal mood - Skin Skin exam: Present: warm, dry Result/EKG - Labs CBC & BMP: 08/11/16 03:38 08/11/16 03:38 Lab Results: I have reviewed the past 24 hour labs Labs: Laboratory Results - last 24 hr 08/10/16 08/10/16 08/10/16 16:17 16:29 20:55 WBC RBC Hgb Hct MCV MCH MCHC RDW Plt Count MPV Neut % (Auto) Lymph % (Auto) [place] % (Auto) Eos % (Auto) Baso % (Auto) Neut # (Auto) Lymph # (Auto) [place] # (Auto) Eos # (Auto) Baso # (Auto) Immature Gran % Nucleated RBC % Immature Gran # Nucleated RBCs # INR 1.3 PT Patient/Control Mix 14.0 Circ Anticoag PTT 38.1 D Sodium Potassium Chloride Carbon Dioxide Anion Gap BUN Creatinine GFR Calculation BUN/Creatinine Ratio Glucose POC Glucose 99 125 H Calculated Osmolality Calcium Magnesium 08/10/16 08/11/16 08/11/16 21:49 03:38 03:38 WBC 5.0 RBC 4.69 Hgb 12.4 L Hct 38.3 L MCV 81.7 L MCH 26 L MCHC 32.4 RDW 14.3 Plt Count 139 MPV 13.6 H Neut % (Auto) 65.5 Lymph % (Auto) 20.3 L [place] % (Auto) 6.8 Eos % (Auto) 7.0 Baso % (Auto) 0.2 Neut # (Auto) 3.3 Lymph # (Auto) 1.0 L [place] # (Auto) 0.3 Eos # (Auto) 0.4 Baso # (Auto) 0.0 Immature Gran % 0.2 Nucleated RBC % 0.0 Immature Gran # 0.01 Nucleated RBCs # 0.00 INR 1.3 1.3 PT Patient/Control Mix 13.5 14.3 Circ Anticoag PTT 31.5 79.3 H D Sodium Potassium Chloride Carbon Dioxide Anion Gap BUN Creatinine GFR Calculation BUN/Creatinine Ratio Glucose POC Glucose Calculated Osmolality Calcium Magnesium 08/11/16 08/11/16 08/11/16 03:38 03:38 07:40 WBC RBC Hgb Hct MCV MCH MCHC RDW Plt Count MPV Neut % (Auto) Lymph % (Auto) [place] % (Auto) Eos % (Auto) Baso % (Auto) Neut # (Auto) Lymph # (Auto) [place] # (Auto) Eos # (Auto) Baso # (Auto) Immature Gran % Nucleated RBC % Immature Gran # Nucleated RBCs # INR PT Patient/Control Mix Circ Anticoag PTT Sodium 141 Potassium 4.1 Chloride 105 Carbon Dioxide 25 Anion Gap 15.1 H BUN 42 H Creatinine 5.30 H GFR Calculation 20 BUN/Creatinine Ratio 7.00 Glucose 103 POC Glucose 99 Calculated Osmolality 291.3 Calcium 8.1 L Magnesium 2.0 08/11/16 08/11/16 10:29 11:47 WBC RBC Hgb Hct MCV MCH MCHC RDW Plt Count MPV Neut % (Auto) Lymph % (Auto) [place] % (Auto) Eos % (Auto) Baso % (Auto) Neut # (Auto) Lymph # (Auto) [place] # (Auto) Eos # (Auto) Baso # (Auto) Immature Gran % Nucleated RBC % Immature Gran # Nucleated RBCs # INR PT Patient/Control Mix Circ Anticoag PTT 150.8 H* Sodium Potassium Chloride Carbon Dioxide Anion Gap BUN Creatinine GFR Calculation BUN/Creatinine Ratio Glucose POC Glucose 102 Calculated Osmolality Calcium Magnesium - EKG EKG results: interpreted by me EKG shows: sinus rhythm I, Fernanda Richards MD, personally performed the services described in this documentation, ascribed by Abbey Doherty RN in my presence, and it is both accurate and complete 923 .
[2016-08-11] MEDS: ATORVASTATIN 10 MG TABLET PO SCH (21:11)
[2016-08-12] MEDS: NITROGLYCERIN 2% OINT 1 INCH/GM PACK TOP SCH ×4 (01:57→18:16)
[2016-08-12] MEDS: HEPARIN DRIP 25,000 UNITS/500 ML PREMIX IV SCH ×3 (03:56→17:26)
[2016-08-12 04:38] LABS: Basophils % 0.4 % (0.0-0.8); Eosinophils # 0.3 10*3/uL (0.0-0.87); Eosinophils % 5.5 % (0.00-10.9); Hematocrit 40.2 VOL% (42.0-52.0); Hemoglobin 12.8 GM/DL (14.0-18.0); Immature Granulocytes % 0.2 %; Immature Granulocytes Absolute 0.01 #; Lymphocytes # 1.1 10*3/uL (1.4-4.0); Mean Corpuscular HGB Conc 31.8 GM/DL (32-36); Mean Corpuscular Hemoglobin 26 PG (27-34); Mean Corpuscular Volume 82.4 FL (87-102); Mean Platelet Volume 12.2 FL (9.6-12.0); Monocytes # 0.4 10*3/uL (0.11-0.8); Monocytes % 6.9 % (1.7-12.7); Neutrophils # 3.3 10*3/uL (1.4-7.4); Platelet Count 179 T/CUMM (130-400); Red Blood Count 4.88 MC/CUMM (3.8-5.5); Red Cell Distribution Width 14.3 % (9.3-17.3); White Blood Count 5.1 T/CUMM (4-12)
[2016-08-12 06:16] LABS: Calcium 8.5 MG/DL (8.5-10.1); Osmolality,Calculated 289.4 MOS/KG (273-304); Potassium 4.3 MMOL/L (3.5-5.1)
--- NOTE | 2016-08-12 07:17 | Cardiology Progress Note ---
Assessment and Plan (1) Chest pain Status: Acute Assessment and plan: This may have been from recurrent pulmonary emboli. He needs to be treated regardless because of his history, so we are bridging him with heparin and warfarin. Current Visit: Yes (2) Shortness of breath Status: Acute Assessment and plan: This may be related to pulmonary embolism. His habitus certainly contributes. Overall symptoms are improved. Current Visit: Yes (3) Chronic renal failure Status: Chronic Assessment and plan: Stable post left heart cath. Current Visit: Yes Qualifiers: Chronic kidney disease stage: stage 4 (severe) Qualified Code(s): N18.4 - Chronic kidney disease, stage 4 (severe) (4) Dyslipidemia Status: Chronic Current Visit: Yes (5) Hx pulmonary embolism Status: Chronic Current Visit: Yes (6) Morbid obesity Status: Chronic Current Visit: Yes (7) Sleep apnea Status: Chronic Current Visit: Yes Cardiology - PN: Subj Interval history: Evening uneventful. No complaints. Denies chest pain or shortness of breath. Exam (Progress Note) - Constitutional Vitals: Period Temp Pulse Resp BP Sys/Trimble Pulse Ox Last 24 Hr 97.8 F-98.6 F 49-63 16-18 123-151/71-81 92-100 Exam: General appearance: Obese, no acute distress - Head Head exam: Present: normal inspection, normocephalic, atraumatic. Absent: hematoma, laceration - Eye Eye exam: Present: EOMI. Absent: conjunctival injection, nystagmus, periorbital swelling, scleral icterus, laceration to eyelids Pupils: Present: CLARE. Absent: constricted, dilated, fixed, irregular, unequal - ENT ENT exam: Present: normal exam, normal external ear exam - Neck Neck exam: Present: Exam limited by habitus, overall normal inspection. Absent : lymphadenopathy, meningismus, tenderness, thyromegaly - Respiratory Respiratory exam: Present: Exam limited by habitus, overall clear to auscultation bilaterally. Absent: accessory muscle use, chest wall tenderness - Cardiovascular Cardiovascular exam: Present: Exam limited by habitus, tense in general distant but overall regular rate and rhythm. Absent: carotid bruit, gallop, JVD, rubs - GI/Abdominal GI/Abdominal exam: Present: Exam limited by habitus, overall normal bowel sounds. Absent: distended, firm, guarding, hernia, mass, tenderness, rebound, soft - Extremities Exam Extremities exam: Present: normal inspection, normal capillary refill. Absent: calf tenderness, edema - Back Exam Back exam: Present: normal inspection. Absent: muscle spasm, vertebral tenderness - Neurological Exam Neurological exam: Present: alert, oriented X3, grossly intact without resting or intention tremor - Psychiatric Psychiatric exam: Present: normal affect, normal mood - Skin Skin exam: Present: normal color, warm, dry, intact. Absent: cyanosis, diaphoretic, rash, urticaria Result/EKG - Labs CBC & BMP: 08/12/16 04:20 08/12/16 04:20 Lab Results: I have reviewed the past 24 hour labs Labs: Laboratory Results - last 24 hr 08/10/16 08/11/16 08/11/16 20:55 03:38 07:40 WBC RBC Hgb Hct MCV MCH MCHC RDW Plt Count MPV Neut % (Auto) Lymph % (Auto) [place] % (Auto) Eos % (Auto) Baso % (Auto) Neut # (Auto) Lymph # (Auto) [place] # (Auto) Eos # (Auto) Baso # (Auto) Immature Gran % Nucleated RBC % Immature Gran # Nucleated RBCs # INR PT Patient/Control Mix Circ Anticoag PTT Sodium Potassium Chloride Carbon Dioxide Anion Gap BUN Creatinine GFR Calculation BUN/Creatinine Ratio Glucose POC Glucose 125 H 99 Calculated Osmolality Calcium Magnesium 2.0 08/11/16 08/11/16 08/11/16 10:29 11:47 15:49 WBC RBC Hgb Hct MCV MCH MCHC RDW Plt Count MPV Neut % (Auto) Lymph % (Auto) [place] % (Auto) Eos % (Auto) Baso % (Auto) Neut # (Auto) Lymph # (Auto) [place] # (Auto) Eos # (Auto) Baso # (Auto) Immature Gran % Nucleated RBC % Immature Gran # Nucleated RBCs # INR PT Patient/Control Mix Circ Anticoag PTT 150.8 H* Sodium Potassium Chloride Carbon Dioxide Anion Gap BUN Creatinine GFR Calculation BUN/Creatinine Ratio Glucose POC Glucose 102 132 H Calculated Osmolality Calcium Magnesium 08/11/16 08/11/16 08/11/16 16:09 20:35 21:04 WBC RBC Hgb Hct MCV MCH MCHC RDW Plt Count MPV Neut % (Auto) Lymph % (Auto) [place] % (Auto) Eos % (Auto) Baso % (Auto) Neut # (Auto) Lymph # (Auto) [place] # (Auto) Eos # (Auto) Baso # (Auto) Immature Gran % Nucleated RBC % Immature Gran # Nucleated RBCs # INR 1.4 PT Patient/Control Mix 15.1 Circ Anticoag PTT 136.8 H* 44.0 H D Sodium Potassium Chloride Carbon Dioxide Anion Gap BUN Creatinine GFR Calculation BUN/Creatinine Ratio Glucose POC Glucose 104 Calculated Osmolality Calcium Magnesium 08/12/16 08/12/16 08/12/16 04:20 04:20 04:20 WBC 5.1 RBC 4.88 Hgb 12.8 L Hct 40.2 L MCV 82.4 L MCH 26 L MCHC 31.8 L RDW 14.3 Plt Count 179 D MPV 12.2 H Neut % (Auto) 66.0 Lymph % (Auto) 21.0 L [place] % (Auto) 6.9 Eos % (Auto) 5.5 Baso % (Auto) 0.4 Neut # (Auto) 3.3 Lymph # (Auto) 1.1 L [place] # (Auto) 0.4 Eos # (Auto) 0.3 Baso # (Auto) 0.0 Immature Gran % 0.2 Nucleated RBC % 0.0 Immature Gran # 0.01 Nucleated RBCs # 0.00 INR PT Patient/Control Mix Circ Anticoag PTT 110.9 H* Sodium 140 Potassium 4.3 Chloride 104 Carbon Dioxide 27 Anion Gap 13.3 BUN 41 H Creatinine 5.60 H GFR Calculation 18 BUN/Creatinine Ratio 7.00 Glucose 112 H POC Glucose Calculated Osmolality 289.4 Calcium 8.5 Magnesium 2.0
[2016-08-12] MEDS: INSULIN REGULAR 100 UNIT/ML SUBCUT SCH ×4 (08:13→21:43)
[2016-08-12 08:23] LABS: INR 1.6; PT Patient Result 17.5 SECS
[2016-08-12] MEDS: VALSARTAN/HCTZ 160-12.5 MG TABLET PO SCH (09:31)
[2016-08-12] MEDS: MINOXIDIL 2.5 MG TABLET PO SCH (09:31)
[2016-08-12] MEDS: PANTOPRAZOLE 40 MG TABLET PO SCH (09:33)
[2016-08-12] MEDS: FINASTERIDE 5 MG TABLET PO SCH (09:33)
[2016-08-12] MEDS: MAGNESIUM OXIDE 400 MG TABLET PO SCH (09:33)
[2016-08-12] MEDS: ALLOPURINOL 300 MG TABLET PO SCH (09:33)
[2016-08-12] MEDS: amLODIPine 5 MG TABLET PO SCH (09:33)
[2016-08-12] MEDS: FUROSEMIDE 40 MG TABLET PO SCH ×3 (09:33→20:46)
[2016-08-12] MEDS: ASPIRIN EC 325 MG TABLET PO SCH (09:33)
[2016-08-12] MEDS: ACETYLCYSTEINE 600 MG CAPSULE PO SCH ×2 (09:34→20:46)
[2016-08-12] MEDS: POTASSIUM CHLORIDE 10 MEQ TABLET PO SCH ×2 (09:40→17:34)
[2016-08-12] MEDS ORDERED: POLYETHYLENE GLYCOL POWDER 17 GM PACK PO PRN (11:10)
[2016-08-12] MEDS: FLUTICASONE 50 MCG NASAL SPRAY 16 GM BOTTLE BOTH NARES SCH (14:45)
[2016-08-12] MEDS ORDERED: WARFARIN 5 MG TABLET ONE (17:00)
[2016-08-12] MEDS: TAMSULOSIN 0.4 MG CAPSULE PO SCH (17:33)
[2016-08-12] MEDS: WARFARIN 10 MG TABLET PO SCH (18:22)
[2016-08-12] MEDS: ATORVASTATIN 10 MG TABLET PO SCH (20:46)
[2016-08-13] MEDS: NITROGLYCERIN 2% OINT 1 INCH/GM PACK TOP SCH ×3 (02:02→12:44)
[2016-08-13 05:47] LABS: Basophils % 0.2 % (0.0-0.8); Eosinophils # 0.4 10*3/uL (0.0-0.87); Eosinophils % 7.1 % (0.00-10.9); Hematocrit 40.6 VOL% (42.0-52.0); Immature Granulocytes % 0.2 %; Immature Granulocytes Absolute 0.01 #; Lymphocytes # 0.9 10*3/uL (1.4-4.0); Lymphocytes % 17.8 % (21.2-54.2); Mean Corpuscular Hemoglobin 27 PG (27-34); Mean Corpuscular Volume 82.9 FL (87-102); Mean Platelet Volume 12.6 FL (9.6-12.0); Monocytes # 0.4 10*3/uL (0.11-0.8); Monocytes % 8.9 % (1.7-12.7); Neutrophils # 3.3 10*3/uL (1.4-7.4); Neutrophils % 65.8 % (38.7-73.9); Platelet Count 185 T/CUMM (130-400); Red Cell Distribution Width 14.3 % (9.3-17.3); White Blood Count 4.9 T/CUMM (4-12)
[2016-08-13 05:52] LABS: INR 1.9
[2016-08-13 05:57] LABS: PT Patient Result 20.7 SECS
[2016-08-13 07:21] LABS: Calcium 8.6 MG/DL (8.5-10.1); Magnesium 2.1 MG/DL (1.8-2.4); Osmolality,Calculated 291.4 MOS/KG (273-304); Potassium 4.4 MMOL/L (3.5-5.1)
[2016-08-13] MEDS: INSULIN REGULAR 100 UNIT/ML SUBCUT SCH ×2 (08:16→11:56)
[2016-08-13] MEDS: POTASSIUM CHLORIDE 10 MEQ TABLET PO SCH (09:35)
[2016-08-13] MEDS: ACETYLCYSTEINE 600 MG CAPSULE PO SCH (09:35)
[2016-08-13] MEDS: MINOXIDIL 2.5 MG TABLET PO SCH (09:36)
[2016-08-13] MEDS: VALSARTAN/HCTZ 160-12.5 MG TABLET PO SCH (09:36)
[2016-08-13] MEDS: ASPIRIN EC 325 MG TABLET PO SCH (09:36)
[2016-08-13] MEDS: ALLOPURINOL 300 MG TABLET PO SCH (09:36)
[2016-08-13] MEDS: FINASTERIDE 5 MG TABLET PO SCH (09:36)
[2016-08-13] MEDS: FUROSEMIDE 40 MG TABLET PO SCH (09:36)
[2016-08-13] MEDS: amLODIPine 5 MG TABLET PO SCH (09:36)
[2016-08-13] MEDS: MAGNESIUM OXIDE 400 MG TABLET PO SCH (09:36)
[2016-08-13] MEDS: PANTOPRAZOLE 40 MG TABLET PO SCH (09:37)
[2016-08-13] MEDS: FLUTICASONE 50 MCG NASAL SPRAY 16 GM BOTTLE BOTH NARES SCH (09:37)
--- NOTE | 2016-08-13 11:17 | Discharge Summary ---
Hospital Course - Hospital Course Hospital Course: Mr. Quintana is a 65 year old male routinely followed by me. Risk factors include : Hypertension, dyslipidemia, morbid obesity, sedentary lifestyle, history of CVA. He also has a history of pulmonary embolism 2000 for which she has taken Coumadin since that time. Also history of obstructive sleep apnea, reports good compliance. History of chronic renal insufficiency, class IV, followed by Dr. Lovell. He was admitted to the hospital with chest pain, shortness of breath. He has a history of pulmonary embolism but had not recently followed up for an INR evaluation. He was subtherapeutic despite reported good medical compliance. Because of his profound renal insufficiency, he underwent a VQ scan which was of intermediate probability. This was not pursued further because of his renal failure, and the fact that he was going to require ongoing anticoagulation regardless of its results. He was started on heparin and his Coumadin was increased. On 08/10/2016 he underwent coronary catheterization which revealed mild coronary atherosclerosis only. Dr. Green evaluated the patient as well. His renal function remained stable. He was bridged with heparin therapy until his INR was therapeutic because it was unclear whether or not he had had a new pulmonary embolic event. On the day of discharge she reported that his chest discomfort was usually worsened by eating or laying recumbent, and he had been taking a proton pump inhibitor. For this reason we are going to refer him to gastroenterology for further evaluation. Diagnosis - Discharge Diagnosis (1) Chest pain Status: Acute (2) Shortness of breath Status: Acute (3) Chronic renal failure Status: Chronic (4) Dyslipidemia Status: Chronic (5) Hx pulmonary embolism Status: Chronic (6) Morbid obesity Status: Chronic (7) Sleep apnea Status: Chronic Discharge Plan - Discharge Data Disposition: Disch To Home/Self Care Condition at Discharge: Stable Activity: resume usual activities as tolerated, no lifting (for 5 more days) Hygiene: may shower - Discharge Medications New Warfarin [Coumadin] 10 mg PO DAILY@1800 #30 tablet Continue Furosemide Tab [Lasix Tab] 40 mg PO TID amLODIPine [Norvasc] 5 mg PO DAILY Potassium Chloride [K-Tab ER] 10 meq PO BID W/MEALS Magnesium Oxide [Magnesium] 400 mg PO DAILY Valsartan/Hydrochlorothiazide [Valsartan-Hctz 320-25 mg Tab] 1 each PO QAM Fluticasone 50 Mcg Nasal [place] [Flonase Nasal [place]] 2 spray BOTH NARES DAILY Tamsulosin [Flomax] 0.4 mg PO PC SUPPER Nebivolol [Bystolic] 40 mg PO DAILY Minoxidil 5 mg PO DAILY Omeprazole 20 mg PO QAM Allopurinol 300 mg PO DAILY Atorvastatin [Lipitor] 10 mg PO BEDTIME Finasteride [Proscar] 5 mg PO DAILY Discontinued Warfarin [Coumadin] 7.5 mg PO DAILY - Follow Up or Referral Follow Up: Fernanda Richards MD [Physician] - 1 Week (F/U with me in clinic 1-2 weeks F/U at [facility] coumadin clinic on Sun08/16/16 for INR check) Ty Mosquera MD [Physician] - 2 Weeks (Next available, for GERD sx despite PPI Rx.) - Forms/Instructions Exam - Constitutional Vitals: Period Temp Pulse Resp BP Sys/Trimble Pulse Ox Last 24 Hr 96.8 F-99.2 F 55-68 16-20 127-150/68-81 94-100 Exam: General appearance: Obese, no acute distress - Head Head exam: Present: normal inspection, normocephalic, atraumatic. Absent: hematoma, laceration - Eye Eye exam: Present: EOMI. Absent: conjunctival injection, nystagmus, periorbital swelling, scleral icterus, laceration to eyelids Pupils: Present: CLARE. Absent: constricted, dilated, fixed, irregular, unequal - ENT ENT exam: Present: normal exam, normal external ear exam - Neck Neck exam: Present: Exam limited by habitus, overall normal inspection. Absent : lymphadenopathy, meningismus, tenderness, thyromegaly - Respiratory Respiratory exam: Present: Exam limited by habitus, overall clear to auscultation bilaterally. Absent: accessory muscle use, chest wall tenderness - Cardiovascular Cardiovascular exam: Present: Exam limited by habitus, tense in general distant but overall regular rate and rhythm. Absent: carotid bruit, gallop, JVD, rubs - GI/Abdominal GI/Abdominal exam: Present: Exam limited by habitus, overall normal bowel sounds. Absent: distended, firm, guarding, hernia, mass, tenderness, rebound, soft - Extremities Exam Extremities exam: Present: normal inspection, normal capillary refill. Absent: calf tenderness, edema - Back Exam Back exam: Present: normal inspection. Absent: muscle spasm, vertebral tenderness - Neurological Exam Neurological exam: Present: alert, oriented X3, grossly intact without resting or intention tremor - Psychiatric Psychiatric exam: Present: normal affect, normal mood - Skin Skin exam: Present: normal color, warm, dry, intact. Absent: cyanosis, diaphoretic, rash, urticaria Discharge Results Procedures and tests throughout hospitalization: Pending Orders 08/10/16 06:43 CL heart Routine 08/14/16 04:00 BMP w/ Mg [Basic Metabolic Panel w/Mg] IN AM Prothrombin Time INR IN AM 08/15/16 04:00 Prothrombin Time INR IN AM Labs on day of discharge: Labs from last 24 hours 08/13/16 08/13/16 08/13/16 04:12 04:11 04:11 WBC 4.9 RBC 4.90 Hgb 13.0 L Hct 40.6 L MCV 82.9 L MCH 27 MCHC 32.0 RDW 14.3 Plt Count 185 MPV 12.6 H Neut % (Auto) 65.8 Lymph % (Auto) 17.8 L [place] % (Auto) 8.9 Eos % (Auto) 7.1 Baso % (Auto) 0.2 Neut # (Auto) 3.3 Lymph # (Auto) 0.9 L [place] # (Auto) 0.4 Eos # (Auto) 0.4 Baso # (Auto) 0.0 Immature Gran % 0.2 Nucleated RBC % 0.0 Immature Gran # 0.01 Nucleated RBCs # 0.00 INR 1.9 PT Patient/Control Mix 20.7 Circ Anticoag PTT 102.9 H* Sodium Potassium Chloride Carbon Dioxide Anion Gap BUN Creatinine GFR Calculation BUN/Creatinine Ratio Glucose POC Glucose Calculated Osmolality Calcium Magnesium 08/13/16 08/12/16 08/12/16 04:11 21:33 19:57 WBC RBC Hgb Hct MCV MCH MCHC RDW Plt Count MPV Neut % (Auto) Lymph % (Auto) [place] % (Auto) Eos % (Auto) Baso % (Auto) Neut # (Auto) Lymph # (Auto) [place] # (Auto) Eos # (Auto) Baso # (Auto) Immature Gran % Nucleated RBC % Immature Gran # Nucleated RBCs # INR PT Patient/Control Mix Circ Anticoag PTT 103.2 H* Sodium 140 Potassium 4.4 Chloride 104 Carbon Dioxide 25 Anion Gap 15.4 H BUN 47 H Creatinine 5.70 H GFR Calculation 18 BUN/Creatinine Ratio 8.00 Glucose 110 H POC Glucose 121 H Calculated Osmolality 291.4 Calcium 8.6 Magnesium 2.1 08/12/16 08/12/16 08/12/16 15:40 12:42 11:48 WBC RBC Hgb Hct MCV MCH MCHC RDW Plt Count MPV Neut % (Auto) Lymph % (Auto) [place] % (Auto) Eos % (Auto) Baso % (Auto) Neut # (Auto) Lymph # (Auto) [place] # (Auto) Eos # (Auto) Baso # (Auto) Immature Gran % Nucleated RBC % Immature Gran # Nucleated RBCs # INR PT Patient/Control Mix Circ Anticoag PTT Sodium Potassium Chloride Carbon Dioxide Anion Gap BUN Creatinine GFR Calculation BUN/Creatinine Ratio Glucose POC Glucose 127 H 117 H 98 Calculated Osmolality Calcium Magnesium 08/12/16 11:02 WBC RBC Hgb Hct MCV MCH MCHC RDW Plt Count MPV Neut % (Auto) Lymph % (Auto) [place] % (Auto) Eos % (Auto) Baso % (Auto) Neut # (Auto) Lymph # (Auto) [place] # (Auto) Eos # (Auto) Baso # (Auto) Immature Gran % Nucleated RBC % Immature Gran # Nucleated RBCs # INR PT Patient/Control Mix Circ Anticoag PTT 128.4 H* Sodium Potassium Chloride Carbon Dioxide Anion Gap BUN Creatinine GFR Calculation BUN/Creatinine Ratio Glucose POC Glucose Calculated Osmolality Calcium Magnesium DS: Provider Date of admission: 08/09/16 10:52 Primary care physician: . No PCP Attending physician on admission: Fernanda Richards, Consults: 08/09/16 13:36 Consult to Pharmacy [CONS] Routine Reason for Pharmacy Consult: Adjust Meds Renal Funct 08/09/16 14:03 Consult to Physician [CONS] Routine Comment: CRI, may need heart cath. Consulting Provider: Wyatt Lovell Discharging clinician: Fernanda Richards, Expected date of discharge: 08/13/16
[2016-08-13 12:24] VITALS: BP 159/80
== END 2016-08-13 12:45 | disposition home or self-care (01) | DRG 287 ==
LOC: N.ED 09:57 → N.EDINP 12:15 → N.TELES 12:44
PROVIDERS: ADMIT Internal Medicine Cardiovascular Disease; ATTEND Internal Medicine Cardiovascular Disease
PROC: CLCCHCL (ICD-10-PCS; 2016-08-10 11:15)

== ENCOUNTER 2017-10-25 18:36 | Inpatient (IN) ==
[2017-10-25] MEDS ORDERED: MORPHINE 4 MG/1 ML VIAL IV PRN (21:38)
[2017-10-25] MEDS ORDERED: ONDANSETRON 4 MG/2 ML VIAL IV PRN (21:38)
[2017-10-25] MEDS ORDERED: ALBUTEROL/IPRATROPIUM 3 ML NEB RESP TX PRN (21:41)
[2017-10-25] MEDS ORDERED: SODIUM CHLORIDE 0.9% 1,000 ML IV PRN (21:42)
[2017-10-25] MEDS ORDERED: FUROSEMIDE 20 MG/2 ML VIAL IV PRN (21:42)
[2017-10-25] MEDS ORDERED: PHYTONADIONE 10 MG/1 ML AMP IV ONE (21:45)
[2017-10-25 23:01] LABS: Alanine Aminotransferase < 9 U/L (16-61); Albumin 2.8 G/DL (3.4-5.0); Alkaline Phosphatase 50 U/L (45-117); Aspartate Amino Transferase 10 U/L (0-37); Blood Urea Nitrogen 72 MG/DL (7-18); Calcium 8.2 MG/DL (8.5-10.1); Cholesterol 113 MG/DL (50-200); Glucose 95 MG/DL (74-106); HDL Cholesterol 50 MG/DL (40-60); Osmolality,Calculated 297.5 MOS/KG (273-304); Potassium 3.9 MMOL/L (3.5-5.1); Risk Ratio 2.26; Sodium 139 MMOL/L (136-145); Total Protein 6.7 G/DL (6.4-8.3); Triglycerides 79 MG/DL (2-150); VLDL CHOLESTEROL 15.8 MG/DL
[2017-10-25 23:06] LABS: PT Patient Result 40.5 SECS
[2017-10-25] MEDS: ALBUTEROL/IPRATROPIUM 3 ML NEB RESP TX SCH (23:47)
[2017-10-26 00:03] LABS: Eosinophils % 8.9 % (0.00-10.9); Monocytes # 0.6 10*3/uL (0.11-0.8); Red Cell Distribution Width 15.9 % (9.3-17.3)
[2017-10-26 00:08] LABS: Basophils % 0.2 % (0.0-0.8); Eosinophils # 0.9 10*3/uL (0.0-0.87); Hematocrit 21.5 VOL% (42.0-52.0); Hemoglobin 6.8 GM/DL (14.0-18.0); Immature Granulocytes % 0.5 %; Immature Granulocytes Absolute 0.05 #; Lymphocytes # 1.1 10*3/uL (1.4-4.0); Lymphocytes % 11.1 % (21.2-54.2); Mean Corpuscular HGB Conc 31.6 GM/DL (32-36); Mean Corpuscular Hemoglobin 28 PG (27-34); Mean Corpuscular Volume 88.5 FL (87-102); Monocytes % 5.7 % (1.7-12.7); Neutrophils # 7.1 10*3/uL (1.4-7.4); Neutrophils % 73.6 % (38.7-73.9); Platelet Count 181 T/CUMM (130-400); Red Blood Count 2.43 MC/CUMM (3.8-5.5); White Blood Count 9.7 T/CUMM (4-12)
[2017-10-26] MEDS: ALBUTEROL/IPRATROPIUM 3 ML NEB RESP TX SCH ×3 (07:38→19:04)
[2017-10-26] MEDS: DOCUSATE SODIUM 100 MG CAPSULE PO SCH ×2 (08:47→20:36)
[2017-10-26] MEDS: PANTOPRAZOLE 40 MG TABLET PO SCH (08:47)
[2017-10-26] MEDS: FUROSEMIDE 40 MG TABLET PO SCH ×2 (08:47→20:36)
[2017-10-26] MEDS: CALCITRIOL 0.25 MCG CAPSULE PO SCH (08:48)
[2017-10-26] MEDS: NEBIVOLOL 10 MG TABLET PO SCH (08:49)
[2017-10-26] MEDS: POTASSIUM CHLORIDE 10 MEQ TABLET PO SCH (08:49)
[2017-10-26] MEDS ORDERED: DARBEPOETIN ALFA 200 MCG/ML VIAL SUBCUT ONE (09:32)
[2017-10-26] MEDS: cefTRIAXone 1,000 MG in SYRINGE 1 EACH IV SCH ×2 (10:30→21:30)
[2017-10-26 10:34] LABS: Hematocrit 26.2 VOL% (42.0-52.0)
[2017-10-26 10:36] LABS: Hemoglobin 8.5 GM/DL (14.0-18.0)
[2017-10-26] MEDS: AZITHROMYCIN INJ 500 MG in SODIUM CHLORIDE 0.9% 250 ML IV SCH (10:36)
[2017-10-26 10:49] LABS: % Iron Saturation 20.6 % (18-50)
[2017-10-26] MEDS: TAMSULOSIN 0.4 MG CAPSULE PO SCH (18:20)
[2017-10-26] MEDS: ATORVASTATIN 10 MG TABLET PO SCH (20:36)
[2017-10-26] MEDS ORDERED: ACETAMINOPHEN 325 MG TABLET PO ONE (23:38)
[2017-10-27] MEDS: ALBUTEROL/IPRATROPIUM 3 ML NEB RESP TX SCH ×4 (00:42→23:14)
[2017-10-27] MEDS: POTASSIUM CHLORIDE 10 MEQ TABLET PO SCH (08:54)
[2017-10-27] MEDS: FUROSEMIDE 40 MG TABLET PO SCH ×2 (08:54→21:46)
[2017-10-27] MEDS: NEBIVOLOL 10 MG TABLET PO SCH (08:54)
[2017-10-27] MEDS: CALCITRIOL 0.25 MCG CAPSULE PO SCH (08:54)
[2017-10-27] MEDS: PANTOPRAZOLE 40 MG TABLET PO SCH (08:54)
[2017-10-27] MEDS: DOCUSATE SODIUM 100 MG CAPSULE PO SCH ×2 (08:55→21:46)
[2017-10-27] MEDS: AZITHROMYCIN INJ 500 MG in SODIUM CHLORIDE 0.9% 250 ML IV SCH (08:55)
[2017-10-27] MEDS: cefTRIAXone 1,000 MG in SYRINGE 1 EACH IV SCH ×2 (11:12→21:46)
[2017-10-27 13:30] LABS: INR 1.2
[2017-10-27] MEDS: TAMSULOSIN 0.4 MG CAPSULE PO SCH (17:34)
[2017-10-27] MEDS: ATORVASTATIN 10 MG TABLET PO SCH (21:46)
[2017-10-28] MEDS: ALBUTEROL/IPRATROPIUM 3 ML NEB RESP TX SCH ×4 (00:13→20:04)
[2017-10-28 06:05] LABS: Calcium 8.6 MG/DL (8.5-10.1); Osmolality,Calculated 298.7 MOS/KG (273-304); Potassium 4.2 MMOL/L (3.5-5.1)
[2017-10-28 06:12] LABS: INR 1.5; PT Patient Result 15.4 SECS
[2017-10-28] MEDS: NEBIVOLOL 10 MG TABLET PO SCH (09:19)
[2017-10-28] MEDS: CALCITRIOL 0.25 MCG CAPSULE PO SCH (09:20)
[2017-10-28] MEDS: FUROSEMIDE 40 MG TABLET PO SCH ×2 (09:20→21:12)
[2017-10-28] MEDS: AZITHROMYCIN INJ 500 MG in SODIUM CHLORIDE 0.9% 250 ML IV SCH (09:20)
[2017-10-28] MEDS: PANTOPRAZOLE 40 MG TABLET PO SCH (09:20)
[2017-10-28] MEDS: POTASSIUM CHLORIDE 10 MEQ TABLET PO SCH (09:20)
[2017-10-28] MEDS: DOCUSATE SODIUM 100 MG CAPSULE PO SCH ×2 (09:20→21:12)
[2017-10-28] MEDS: cefTRIAXone 1,000 MG in SYRINGE 1 EACH IV SCH ×2 (09:32→22:25)
[2017-10-28] MEDS: TAMSULOSIN 0.4 MG CAPSULE PO SCH (17:38)
[2017-10-28] MEDS ORDERED: WARFARIN 7.5 MG TABLET PO SCH (18:00)
[2017-10-28] MEDS: ATORVASTATIN 10 MG TABLET PO SCH (21:12)
[2017-10-29] MEDS: ALBUTEROL/IPRATROPIUM 3 ML NEB RESP TX SCH ×4 (01:12→19:12)
[2017-10-29] MEDS: ACETAMINOPHEN 325 MG TABLET PO PRN (02:08)
[2017-10-29 05:35] LABS: Basophils % 0.5 % (0.0-0.8); Eosinophils # 1.2 10*3/uL (0.0-0.87); Hematocrit 27.1 VOL% (42.0-52.0); Hemoglobin 8.8 GM/DL (14.0-18.0); Immature Granulocytes % 0.7 %; Immature Granulocytes Absolute 0.06 #; Lymphocytes # 1.1 10*3/uL (1.4-4.0); Lymphocytes % 12.5 % (21.2-54.2); Mean Corpuscular HGB Conc 32.5 GM/DL (32-36); Mean Corpuscular Hemoglobin 28 PG (27-34); Mean Platelet Volume 13.5 FL (9.6-12.0); Monocytes # 0.5 10*3/uL (0.11-0.8); Monocytes % 5.6 % (1.7-12.7); NRBC # 0.02 10*3/uL; Neutrophils % 67.7 % (38.7-73.9); Platelet Count 107 T/CUMM (130-400); Red Blood Count 3.19 MC/CUMM (3.8-5.5); Red Cell Distribution Width 15.8 % (9.3-17.3); White Blood Count 8.8 T/CUMM (4-12)
[2017-10-29 05:46] LABS: INR 1.6; PT Patient Result 16.8 SECS
[2017-10-29 05:58] LABS: Calcium 8.4 MG/DL (8.5-10.1); Osmolality,Calculated 301.4 MOS/KG (273-304); Potassium 4.6 MMOL/L (3.5-5.1)
[2017-10-29 06:15] LABS: Eosinophils 8 % (0-10); Hypochromasia 1+; Lymphocytes 14 % (20-55); Ovalocytes Slight; Platelet Estimate Decreased; Segmented Neutrophils 70 % (50-85); Total Cells Counted 100
[2017-10-29] MEDS: CALCITRIOL 0.25 MCG CAPSULE PO SCH (08:41)
[2017-10-29] MEDS: PANTOPRAZOLE 40 MG TABLET PO SCH (08:41)
[2017-10-29] MEDS: NEBIVOLOL 10 MG TABLET PO SCH (08:41)
[2017-10-29] MEDS: FUROSEMIDE 40 MG TABLET PO SCH ×2 (08:42→21:19)
[2017-10-29] MEDS: POTASSIUM CHLORIDE 10 MEQ TABLET PO SCH (08:42)
[2017-10-29] MEDS: DOCUSATE SODIUM 100 MG CAPSULE PO SCH ×2 (08:42→21:18)
[2017-10-29] MEDS: cefTRIAXone 1,000 MG in SYRINGE 1 EACH IV SCH ×2 (12:31→23:30)
[2017-10-29] MEDS: AZITHROMYCIN INJ 500 MG in SODIUM CHLORIDE 0.9% 250 ML IV SCH (12:33)
[2017-10-29] MEDS: TAMSULOSIN 0.4 MG CAPSULE PO SCH (17:16)
[2017-10-29] MEDS: WARFARIN 3 MG TABLET PO SCH (17:16)
[2017-10-29] MEDS: ATORVASTATIN 10 MG TABLET PO SCH (21:19)
[2017-10-30] MEDS: ALBUTEROL/IPRATROPIUM 3 ML NEB RESP TX SCH ×4 (00:03→19:20)
[2017-10-30 05:33] LABS: INR 1.9; PT Patient Result 19.4 SECS
[2017-10-30] MEDS: NEBIVOLOL 10 MG TABLET PO SCH (08:38)
[2017-10-30] MEDS: FUROSEMIDE 40 MG TABLET PO SCH ×2 (08:39→21:15)
[2017-10-30] MEDS: PANTOPRAZOLE 40 MG TABLET PO SCH (08:40)
[2017-10-30] MEDS: POTASSIUM CHLORIDE 10 MEQ TABLET PO SCH (08:40)
[2017-10-30] MEDS: DOCUSATE SODIUM 100 MG CAPSULE PO SCH ×2 (08:40→21:15)
[2017-10-30] MEDS: cefTRIAXone 1,000 MG in SYRINGE 1 EACH IV SCH (10:40)
[2017-10-30] MEDS: CALCITRIOL 0.25 MCG CAPSULE PO SCH (10:40)
[2017-10-30 10:46] LABS: Basophils % 0.2 % (0.0-0.8); Eosinophils # 1.4 10*3/uL (0.0-0.87); Eosinophils % 14.4 % (0.00-10.9); Hematocrit 28.7 VOL% (42.0-52.0); Hemoglobin 9.1 GM/DL (14.0-18.0); Immature Granulocytes % 0.5 %; Immature Granulocytes Absolute 0.05 #; Lymphocytes # 1.1 10*3/uL (1.4-4.0); Lymphocytes % 11.3 % (21.2-54.2); Mean Corpuscular HGB Conc 31.7 GM/DL (32-36); Mean Corpuscular Hemoglobin 28 PG (27-34); Mean Platelet Volume 11.5 FL (9.6-12.0); Monocytes # 0.6 10*3/uL (0.11-0.8); Monocytes % 5.7 % (1.7-12.7); NRBC # 0.03 10*3/uL; Neutrophils # 6.5 10*3/uL (1.4-7.4); Neutrophils % 67.9 % (38.7-73.9); Platelet Count 204 T/CUMM (130-400); Red Blood Count 3.26 MC/CUMM (3.8-5.5); Red Cell Distribution Width 15.8 % (9.3-17.3); White Blood Count 9.6 T/CUMM (4-12)
[2017-10-30 11:05] LABS: Eosinophils 14 % (0-10); Lymphocytes 9 % (20-55); Segmented Neutrophils 72 % (50-85); Total Cells Counted 100
[2017-10-30 11:06] LABS: Hypochromasia 1+; Microcytosis 1+; Platelet Estimate Normal; Polychromasia Slight
[2017-10-30 11:07] LABS: Ovalocytes Few
[2017-10-30] MEDS ORDERED: CLINDAMYCIN INJ 300 MG in PREMIX 1 EACH IV SCH (11:30)
[2017-10-30] MEDS: TAMSULOSIN 0.4 MG CAPSULE PO SCH (17:35)
[2017-10-30] MEDS ORDERED: MAGNESIUM SULF RIDER 2 GM in PREMIX 1 EACH IV ONE (18:00)
[2017-10-30] MEDS: ACETAMINOPHEN 325 MG TABLET PO PRN (21:14)
[2017-10-30] MEDS: ATORVASTATIN 10 MG TABLET PO SCH (21:15)
[2017-10-31] MEDS: ACETAMINOPHEN 325 MG TABLET PO PRN (00:15)
[2017-10-31] MEDS: ALBUTEROL/IPRATROPIUM 3 ML NEB RESP TX SCH ×4 (01:58→19:20)
[2017-10-31 04:57] LABS: Basophils % 0.3 % (0.0-0.8); Eosinophils # 1.5 10*3/uL (0.0-0.87); Hematocrit 27.7 VOL% (42.0-52.0); Hemoglobin 8.7 GM/DL (14.0-18.0); Immature Granulocytes % 0.6 %; Immature Granulocytes Absolute 0.05 #; Lymphocytes # 1.3 10*3/uL (1.4-4.0); Mean Corpuscular HGB Conc 31.4 GM/DL (32-36); Mean Corpuscular Hemoglobin 28 PG (27-34); Mean Corpuscular Volume 88.8 FL (87-102); Mean Platelet Volume 11.5 FL (9.6-12.0); Monocytes # 0.5 10*3/uL (0.11-0.8); Monocytes % 5.5 % (1.7-12.7); NRBC # 0.03 10*3/uL; Neutrophils # 5.4 10*3/uL (1.4-7.4); Neutrophils % 61.6 % (38.7-73.9); Platelet Count 212 T/CUMM (130-400); Red Blood Count 3.12 MC/CUMM (3.8-5.5); Red Cell Distribution Width 15.8 % (9.3-17.3); White Blood Count 8.7 T/CUMM (4-12)
[2017-10-31 05:28] LABS: Eosinophils 16 % (0-10); Lymphocytes 20 % (20-55); Segmented Neutrophils 63 % (50-85); Total Cells Counted 100
[2017-10-31 05:29] LABS: Hypochromasia 1+; Microcytosis 1+; Ovalocytes Slight; Platelet Estimate Normal
[2017-10-31 05:46] LABS: INR 1.9; PT Patient Result 19.4 SECS
[2017-10-31 06:06] LABS: Partial Thromboplastin Time 47.6 SECS (0-40)
[2017-10-31] MEDS ORDERED: MEPERIDINE 50 MG/1 ML VIAL IM ONE (08:00)
[2017-10-31] MEDS ORDERED: diphenhydrAMINE 50 MG/1 ML VIAL IM ONE (08:00)
[2017-10-31] MEDS ORDERED: BENZONATATE 100 MG CAPSULE PO ONE (08:00)
[2017-10-31] MEDS ORDERED: LIDOCAINE 2% 20 ML VIAL RESP TX ONE (08:30)
[2017-10-31] MEDS ORDERED: LIDOCAINE 2% VISCOUS 100 ML BOTTLE SWISH/SPIT ONE (08:30)
[2017-10-31] MEDS ORDERED: LIDOCAINE 1% 20 ML VIAL MISC INJ ONE (08:30)
[2017-10-31] MEDS: NEBIVOLOL 10 MG TABLET PO SCH (10:45)
[2017-10-31] MEDS: CALCITRIOL 0.25 MCG CAPSULE PO SCH (10:46)
[2017-10-31] MEDS: DOCUSATE SODIUM 100 MG CAPSULE PO SCH ×2 (10:47→21:50)
[2017-10-31] MEDS: FUROSEMIDE 40 MG TABLET PO SCH ×2 (10:47→21:50)
[2017-10-31] MEDS: POTASSIUM CHLORIDE 10 MEQ TABLET PO SCH (10:47)
[2017-10-31] MEDS: CLINDAMYCIN INJ 300 MG in PREMIX 1 EACH IV SCH ×4 (10:49→18:46)
[2017-10-31] MEDS: PANTOPRAZOLE 40 MG TABLET PO SCH (11:00)
[2017-10-31] MEDS: TAMSULOSIN 0.4 MG CAPSULE PO SCH (18:08)
[2017-10-31] MEDS: WARFARIN 3 MG TABLET PO SCH (18:08)
[2017-10-31] MEDS ORDERED: METOPROLOL TARTRATE 5 MG/5 ML VIAL IV ONE (19:45)
[2017-10-31] MEDS: ATORVASTATIN 10 MG TABLET PO SCH (21:50)
[2017-11-01] MEDS: ALBUTEROL/IPRATROPIUM 3 ML NEB RESP TX SCH ×4 (00:53→19:33)
[2017-11-01] MEDS: CLINDAMYCIN INJ 300 MG in PREMIX 1 EACH IV SCH ×3 (02:48→17:30)
[2017-11-01 05:22] LABS: Basophils % 0.3 % (0.0-0.8); Eosinophils # 1.3 10*3/uL (0.0-0.87); Eosinophils % 13.9 % (0.00-10.9); Hematocrit 29.2 VOL% (42.0-52.0); Hemoglobin 9.1 GM/DL (14.0-18.0); Immature Granulocytes % 0.7 %; Immature Granulocytes Absolute 0.07 #; Lymphocytes # 1.4 10*3/uL (1.4-4.0); Lymphocytes % 14.1 % (21.2-54.2); Mean Corpuscular HGB Conc 31.2 GM/DL (32-36); Mean Corpuscular Hemoglobin 28 PG (27-34); Mean Corpuscular Volume 88.5 FL (87-102); Mean Platelet Volume 11.1 FL (9.6-12.0); Monocytes # 0.5 10*3/uL (0.11-0.8); Monocytes % 4.9 % (1.7-12.7); NRBC # 0.02 10*3/uL; Neutrophils # 6.4 10*3/uL (1.4-7.4); Neutrophils % 66.1 % (38.7-73.9); Platelet Count 217 T/CUMM (130-400); Red Cell Distribution Width 15.7 % (9.3-17.3); White Blood Count 9.6 T/CUMM (4-12)
[2017-11-01 05:49] LABS: Calcium 8.6 MG/DL (8.5-10.1); Osmolality,Calculated 304.4 MOS/KG (273-304); Potassium 4.5 MMOL/L (3.5-5.1)
[2017-11-01 05:56] LABS: Eosinophils 16 % (0-10); Hypochromasia 1+; Lymphocytes 13 % (20-55); Microcytosis 1+; Segmented Neutrophils 68 % (50-85); Total Cells Counted 100
[2017-11-01 05:57] LABS: Ovalocytes Slight; Platelet Estimate Normal
[2017-11-01 06:03] LABS: INR 2.3
[2017-11-01 06:09] LABS: PT Patient Result 23.1 SECS
[2017-11-01] MEDS: POTASSIUM CHLORIDE 10 MEQ TABLET PO SCH (08:22)
[2017-11-01] MEDS: PANTOPRAZOLE 40 MG TABLET PO SCH (08:22)
[2017-11-01] MEDS: CALCITRIOL 0.25 MCG CAPSULE PO SCH (08:22)
[2017-11-01] MEDS: NEBIVOLOL 10 MG TABLET PO SCH (08:22)
[2017-11-01] MEDS: FUROSEMIDE 40 MG TABLET PO SCH ×2 (08:22→20:00)
[2017-11-01] MEDS: DOCUSATE SODIUM 100 MG CAPSULE PO SCH ×2 (08:23→20:00)
[2017-11-01] MEDS: TAMSULOSIN 0.4 MG CAPSULE PO SCH (17:30)
[2017-11-01] MEDS: WARFARIN 3 MG TABLET PO SCH (17:30)
[2017-11-01] MEDS: ACETAMINOPHEN 325 MG TABLET PO PRN (19:52)
[2017-11-01] MEDS: ATORVASTATIN 10 MG TABLET PO SCH (20:00)
[2017-11-02] MEDS: ALBUTEROL/IPRATROPIUM 3 ML NEB RESP TX SCH ×3 (00:43→12:00)
[2017-11-02] MEDS: CLINDAMYCIN INJ 300 MG in PREMIX 1 EACH IV SCH ×2 (01:37→10:04)
[2017-11-02 05:18] LABS: Basophils % 0.3 % (0.0-0.8); Eosinophils # 1.1 10*3/uL (0.0-0.87); Eosinophils % 13.2 % (0.00-10.9); Hematocrit 28.4 VOL% (42.0-52.0); Hemoglobin 8.8 GM/DL (14.0-18.0); Immature Granulocytes % 0.8 %; Immature Granulocytes Absolute 0.07 #; Lymphocytes # 1.3 10*3/uL (1.4-4.0); Lymphocytes % 15.4 % (21.2-54.2); Mean Corpuscular Hemoglobin 28 PG (27-34); Mean Corpuscular Volume 89.3 FL (87-102); Mean Platelet Volume 10.8 FL (9.6-12.0); Monocytes # 0.5 10*3/uL (0.11-0.8); Monocytes % 5.3 % (1.7-12.7); Neutrophils # 5.6 10*3/uL (1.4-7.4); Platelet Count 215 T/CUMM (130-400); Red Blood Count 3.18 MC/CUMM (3.8-5.5); White Blood Count 8.6 T/CUMM (4-12)
[2017-11-02 05:36] LABS: INR 2.4
[2017-11-02 05:40] LABS: PT Patient Result 24.8 SECS
[2017-11-02 05:47] LABS: Calcium 8.3 MG/DL (8.5-10.1); Osmolality,Calculated 308.1 MOS/KG (273-304); Potassium 4.6 MMOL/L (3.5-5.1)
[2017-11-02 06:36] LABS: Band Neutrophils 5 % (0-10); Eosinophils 12 % (0-10); Lymphocytes 16 % (20-55); Platelet Estimate Normal; Segmented Neutrophils 66 % (50-85); Total Cells Counted 100
[2017-11-02] MEDS: NEBIVOLOL 10 MG TABLET PO SCH (08:26)
[2017-11-02] MEDS: POTASSIUM CHLORIDE 10 MEQ TABLET PO SCH (08:27)
[2017-11-02] MEDS: DOCUSATE SODIUM 100 MG CAPSULE PO SCH (08:27)
[2017-11-02] MEDS: PANTOPRAZOLE 40 MG TABLET PO SCH (08:27)
[2017-11-02] MEDS: FUROSEMIDE 40 MG TABLET PO SCH (08:27)
[2017-11-02] MEDS: CALCITRIOL 0.25 MCG CAPSULE PO SCH (10:06)
[2017-11-02 11:56] VITALS: BP 191/107
== END 2017-11-02 16:45 | disposition home or self-care (01) | DRG 167 ==
LOC: SUATTDRO 20:13 → N.TELEN 20:13
PROVIDERS: ADMIT Internal Medicine Infectious Disease; ATTEND Internal Medicine

== ENCOUNTER 2018-10-27 21:29 | Inpatient (IN) ==
[2018-10-28] MEDS ORDERED: SODIUM CHLORIDE 0.9% 1,000 ML IV PRN (02:42)
[2018-10-28] MEDS ORDERED: FUROSEMIDE 20 MG/2 ML VIAL IV PRN (02:42)
[2018-10-28] MEDS ORDERED: ACETAMINOPHEN 325 MG TABLET PO PRN (02:48)
[2018-10-28] MEDS ORDERED: ONDANSETRON 4 MG/2 ML VIAL IV PRN (02:48)
[2018-10-28] MEDS ORDERED: FUROSEMIDE 40 MG/4 ML VIAL IV PRN (02:55)
[2018-10-28 03:19] LABS: Basophils % 0.2 % (0.0-0.8); Eosinophils # 0.5 10*3/uL (0.0-0.87); Eosinophils % 9.1 % (0.00-10.9); Hematocrit 18.8 VOL% (42.0-52.0); Immature Granulocytes % 0.4 %; Immature Granulocytes Absolute 0.02 #; Lymphocytes # 0.9 10*3/uL (1.4-4.0); Mean Corpuscular HGB Conc 30.3 GM/DL (32-36); Mean Corpuscular Volume 87.9 FL (87-102); Mean Platelet Volume 11.6 FL (9.6-12.0); Monocytes % 7.6 % (1.7-12.7); Neutrophils % 65.7 % (38.7-73.9); Platelet Count 157 T/CUMM (130-400); Red Blood Count 2.14 MC/CUMM (3.8-5.5); Red Cell Distribution Width 15.5 % (9.3-17.3); White Blood Count 5.4 T/CUMM (4-12)
[2018-10-28 03:25] LABS: Hemoglobin 5.7 GM/DL (14.0-18.0)
[2018-10-28 03:32] LABS: INR 3.1
[2018-10-28 03:33] LABS: PT Patient Result 33.8 SECS; Partial Thromboplastin Time 51.8 SECS (0-40)
[2018-10-28 03:57] LABS: Alanine Aminotransferase 10 U/L (16-61); Alkaline Phosphatase 44 U/L (45-117); Aspartate Amino Transferase 14 U/L (0-37); Bilirubin,Total < 0.39 MG/DL (0.2-1.0); Blood Urea Nitrogen 115 MG/DL (7-18); Calcium 9.1 MG/DL (8.5-10.1); Glucose 90 MG/DL (74-106); Osmolality,Calculated 311.7 MOS/KG (273-304); Total Protein 6.5 G/DL (6.4-8.3)
[2018-10-28 04:00] LABS: Basophils % 0.2 % (0.0-0.8); Eosinophils # 0.5 10*3/uL (0.0-0.87); Immature Granulocytes % 0.4 %; Immature Granulocytes Absolute 0.02 #; Lymphocytes # 0.9 10*3/uL (1.4-4.0); Lymphocytes % 16.4 % (21.2-54.2); Mean Corpuscular Volume 88.4 FL (87-102); Mean Platelet Volume 12.5 FL (9.6-12.0); Monocytes % 7.9 % (1.7-12.7); Neutrophils % 66.1 % (38.7-73.9); Platelet Count 154 T/CUMM (130-400); Red Blood Count 2.15 MC/CUMM (3.8-5.5); Red Cell Distribution Width 15.4 % (9.3-17.3); White Blood Count 5.5 T/CUMM (4-12)
[2018-10-28 04:14] LABS: Hemoglobin 5.7 GM/DL (14.0-18.0)
[2018-10-28 04:42] LABS: % Iron Saturation 20.9 % (18-50); Ferritin 209.5 ng/ml (26-388)
[2018-10-28 04:51] LABS: Vitamin B12 418 PG/ML (211-911)
[2018-10-28 05:13] LABS: Elliptocytes Few; Polychromasia Few
[2018-10-28 05:14] LABS: Platelet Estimate Adequate
[2018-10-28] MEDS: CALCITRIOL 0.25 MCG CAPSULE PO SCH (08:57)
[2018-10-28] MEDS: FINASTERIDE 5 MG TABLET PO SCH (08:57)
[2018-10-28] MEDS ORDERED: ALLOPURINOL 300 MG TABLET PO SCH (09:00)
[2018-10-28] MEDS ORDERED: PANTOPRAZOLE 40 MG TABLET PO SCH ×2 (09:00)
[2018-10-28] MEDS ORDERED: PANTOPRAZOLE 40 MG VIAL IV SCH (09:00)
[2018-10-28] MEDS: NEBIVOLOL 10 MG TABLET PO SCH (09:04)
[2018-10-28] MEDS: cloNIDine 0.1 MG TABLET PO SCH ×3 (09:04→21:42)
[2018-10-28] MEDS: FUROSEMIDE 40 MG TABLET PO SCH ×2 (09:06→21:42)
[2018-10-28 10:50] LABS: Sedimentation Rate-Westergren 130 MM/HR (0-20)
[2018-10-28 11:16] LABS: Hepatitis B Core IgM Quant 0.11 Index; Hepatitis B Surface Ag Quant < 0.10 Index; Hepatitis B Surface Ag Result Negative (Negative); Hepatitis C Virus Ab Quant 0.11 Index; Hepatitis C Virus Ab Result Negative (Negative)
[2018-10-28 12:54] LABS: Hemoglobin A1 (Alkaline) 96.8 % (96.5-98.5); Hemoglobin A2 (Alkaline) 3.2 % (1.5-3.5)
[2018-10-28] MEDS: TAMSULOSIN 0.4 MG CAPSULE PO SCH (17:10)
[2018-10-28] MEDS ORDERED: WARFARIN 5 MG TABLET PO SCH (18:00)
[2018-10-28] MEDS: PANTOPRAZOLE 40 MG TABLET PO SCH (21:42)
[2018-10-29 05:17] LABS: Eosinophils # 0.2 10*3/uL (0.0-0.87); Eosinophils % 3.5 % (0.00-10.9); Hematocrit 22.4 VOL% (42.0-52.0); Immature Granulocytes % 0.4 %; Immature Granulocytes Absolute 0.02 #; Lymphocytes # 0.8 10*3/uL (1.4-4.0); Lymphocytes % 14.8 % (21.2-54.2); Mean Corpuscular HGB Conc 31.3 GM/DL (32-36); Mean Corpuscular Volume 87.8 FL (87-102); Mean Platelet Volume 12.9 FL (9.6-12.0); Monocytes % 7.4 % (1.7-12.7); Neutrophils % 73.9 % (38.7-73.9); Platelet Count 180 T/CUMM (130-400); Red Blood Count 2.55 MC/CUMM (3.8-5.5); Red Cell Distribution Width 15.2 % (9.3-17.3); White Blood Count 5.1 T/CUMM (4-12)
[2018-10-29 05:23] LABS: Calcium 8.9 MG/DL (8.5-10.1); Osmolality,Calculated 299.7 MOS/KG (273-304)
[2018-10-29] MEDS: cloNIDine 0.1 MG TABLET PO SCH ×3 (08:22→22:30)
[2018-10-29] MEDS: FUROSEMIDE 40 MG TABLET PO SCH (08:23)
[2018-10-29] MEDS: CALCITRIOL 0.25 MCG CAPSULE PO SCH (08:23)
[2018-10-29] MEDS: FINASTERIDE 5 MG TABLET PO SCH (08:23)
[2018-10-29] MEDS: NEBIVOLOL 10 MG TABLET PO SCH (08:24)
[2018-10-29] MEDS ORDERED: SODIUM CHLORIDE 0.9% 1,000 ML IV PRN (08:27)
[2018-10-29] MEDS: PANTOPRAZOLE 40 MG TABLET PO SCH ×2 (08:31→22:30)
[2018-10-29] MEDS ORDERED: MAGNESIUM HYDROXIDE SUSP 30 ML UDCUP PO PRN (08:39)
[2018-10-29] MEDS ORDERED: EPOETIN ALFA 10,000 UNIT/1 ML VIAL IV PRN (16:32)
[2018-10-29 20:32] LABS: Hematocrit 26.7 VOL% (42.0-52.0); Hemoglobin 8.3 GM/DL (14.0-18.0)
[2018-10-29] MEDS: TAMSULOSIN 0.4 MG CAPSULE PO SCH (22:30)
[2018-10-29] MEDS: POLYETHYLENE GLYCOL POWDER 17 GM PACK PO SCH (22:31)
[2018-10-30 05:17] LABS: INR 2.2
[2018-10-30 05:21] LABS: Basophils % 0.2 % (0.0-0.8); Eosinophils # 0.2 10*3/uL (0.0-0.87); Eosinophils % 3.7 % (0.00-10.9); Hematocrit 25.6 VOL% (42.0-52.0); Hemoglobin 8.1 GM/DL (14.0-18.0); Immature Granulocytes Absolute 0.05 #; Lymphocytes # 0.7 10*3/uL (1.4-4.0); Mean Corpuscular HGB Conc 31.6 GM/DL (32-36); Mean Corpuscular Volume 89.2 FL (87-102); Mean Platelet Volume 12.2 FL (9.6-12.0); Monocytes % 9.8 % (1.7-12.7); Neutrophils % 72.3 % (38.7-73.9); Platelet Count 171 T/CUMM (130-400); Red Blood Count 2.87 MC/CUMM (3.8-5.5); Red Cell Distribution Width 15.1 % (9.3-17.3); White Blood Count 5.1 T/CUMM (4-12)
[2018-10-30 05:25] LABS: PT Patient Result 23.4 SECS
[2018-10-30 05:39] LABS: Calcium 8.9 MG/DL (8.5-10.1); Osmolality,Calculated 289.7 MOS/KG (273-304)
[2018-10-30] MEDS: FINASTERIDE 5 MG TABLET PO SCH (08:13)
[2018-10-30] MEDS: cloNIDine 0.1 MG TABLET PO SCH ×2 (08:13→14:28)
[2018-10-30] MEDS: CALCITRIOL 0.25 MCG CAPSULE PO SCH (08:13)
[2018-10-30] MEDS: NEBIVOLOL 10 MG TABLET PO SCH (08:13)
[2018-10-30] MEDS: PANTOPRAZOLE 40 MG TABLET PO SCH (08:13)
[2018-10-30] MEDS: POLYETHYLENE GLYCOL POWDER 17 GM PACK PO SCH (08:13)
[2018-10-30 08:33] VITALS: BP 135/75
[2018-10-30] MEDS ORDERED: WARFARIN 5 MG TABLET PO SCH (18:00)
== END 2018-10-30 15:00 | disposition home or self-care (01) | DRG 683 ==
LOC: N.5E 22:34 → INTOOBSV 22:34 → SUATTDRO 22:34
PROVIDERS: ADMIT Internal Medicine; ATTEND Internal Medicine

== ENCOUNTER 2020-03-09 12:50 | Inpatient (IN) ==
[2020-03-09] MEDS ORDERED: DEXAMETHASONE 4 MG/1 ML VIAL IV STA (13:52)
[2020-03-09] MEDS ORDERED: ACETAMINOPHEN 500 MG TABLET PO STA (13:53)
[2020-03-09] MEDS ORDERED: FAMOTIDINE 20 MG/2 ML VIAL IV STA (13:53)
[2020-03-09] MEDS ORDERED: CETIRIZINE 10 MG TABLET PO STA (13:53)
[2020-03-09] MEDS ORDERED: LEVOFLOXACIN INJ 500 MG in PREMIX 1 EACH IV STA (14:56)
[2020-03-09 15:03] LABS: Basophils % 0.3 % (0.0-0.8); Eosinophils % 0.3 % (0.00-10.9); Hematocrit 31.8 VOL% (42.0-52.0); Hemoglobin 10.8 GM/DL (14.0-18.0); Immature Granulocytes % 0.5 %; Immature Granulocytes Absolute 0.02 #; Lymphocytes # 0.5 10*3/uL (1.4-4.0); Lymphocytes % 13.8 % (21.2-54.2); Mean Corpuscular Volume 84.6 FL (87-102); Mean Platelet Volume 12.6 FL (9.6-12.0); Neutrophils % 82.1 % (38.7-73.9); Platelet Count 121 T/CUMM (130-400); Red Blood Count 3.76 MC/CUMM (3.8-5.5); Red Cell Distribution Width 14.6 % (9.3-17.3); White Blood Count 3.7 T/CUMM (4-12)
[2020-03-09 15:22] LABS: Hypochromasia Slight; Platelet Estimate Adequate
[2020-03-09] MEDS ORDERED: MORPHINE 4 MG/1 ML VIAL IV PRN (15:36)
[2020-03-09] MEDS ORDERED: LACTULOSE 20 GM/30 ML UDCUP PO PRN (15:36)
[2020-03-09] MEDS ORDERED: GLUCAGON 1 MG VIAL IM PRN (15:36)
[2020-03-09] MEDS ORDERED: DEXTROSE 50% 25 GM/50 ML VIAL IV PRN (15:36)
[2020-03-09] MEDS ORDERED: ONDANSETRON 4 MG/2 ML VIAL IV PRN (15:36)
[2020-03-09] MEDS ORDERED: VANCOMYCIN INJ 1,000 MG in SODIUM CHLORIDE 0.9% 250 ML IV PRN (16:00)
[2020-03-09] MEDS ORDERED: SODIUM CHLORIDE 0.9% 1,000 ML IV SCH (16:00)
[2020-03-09 16:14] LABS: INR 1.4; PT Patient Result 14.6 SECS (9.8-11.9)
[2020-03-09 16:34] LABS: Albumin 2.9 G/DL (3.4-5.0); Bilirubin,Total 0.7 MG/DL (0.2-1.0); Calcium 8.4 MG/DL (8.5-10.1); Osmolality,Calculated 279.1 MOS/KG (273-304)
[2020-03-09 16:45] LABS: Ferritin 3037.3 ng/ml (26-388)
[2020-03-09] MEDS: INSULIN LISPRO 100 UNIT/ML SUBCUT SCH ×2 (17:54→21:37)
[2020-03-09] MEDS: cefTRIAXone 1,000 MG in SYRINGE 1 EACH IV SCH (17:57)
[2020-03-09] MEDS ORDERED: VANCOMYCIN INJ 2,500 MG in SODIUM CHLORIDE 0.9% 500 ML IV ONE (18:00)
[2020-03-09] MEDS: WARFARIN 5 MG TABLET PO SCH (18:19)
[2020-03-09] MEDS: SEVELAMER CARBONATE 800 MG TABLET PO SCH (18:20)
[2020-03-09] MEDS: TAMSULOSIN 0.4 MG CAPSULE PO SCH (18:20)
[2020-03-10 06:39] LABS: Hematocrit 29.4 VOL% (42.0-52.0); Immature Granulocytes % 0.5 %; Immature Granulocytes Absolute 0.01 #; Lymphocytes # 0.3 10*3/uL (1.4-4.0); Lymphocytes % 15.8 % (21.2-54.2); Mean Corpuscular Volume 84.2 FL (87-102); Mean Platelet Volume 12.1 FL (9.6-12.0); Monocytes % 4.4 % (1.7-12.7); Neutrophils % 79.3 % (38.7-73.9); Platelet Count 102 T/CUMM (130-400); Red Blood Count 3.49 MC/CUMM (3.8-5.5); Red Cell Distribution Width 14.5 % (9.3-17.3); White Blood Count 1.8 T/CUMM (4-12)
[2020-03-10 06:50] LABS: INR 1.5; PT Patient Result 16.2 SECS (9.8-11.9)
[2020-03-10 07:10] LABS: Band Neutrophils 4 % (0-10); Lymphocytes 6 % (20-55); Segmented Neutrophils 85 % (50-85); Total Cells Counted 100
[2020-03-10 07:11] LABS: Anisocytosis 1+; Burr Cells Few; Platelet Estimate Adequate
[2020-03-10 07:14] LABS: Albumin 2.6 G/DL (3.4-5.0); Bilirubin,Total 0.4 MG/DL (0.2-1.0); Calcium 8.3 MG/DL (8.5-10.1); Osmolality,Calculated 287.8 MOS/KG (273-304)
[2020-03-10 07:25] LABS: Ferritin 2720.9 ng/ml (26-388)
[2020-03-10] MEDS: allopurinoL 300 MG TABLET PO SCH (09:31)
[2020-03-10] MEDS: NEBIVOLOL 10 MG TABLET PO SCH (09:31)
[2020-03-10] MEDS: DEXAMETHASONE 4 MG/1 ML VIAL IV SCH ×2 (09:31→10:23)
[2020-03-10] MEDS: FINASTERIDE 5 MG TABLET PO SCH (09:31)
[2020-03-10] MEDS: SEVELAMER CARBONATE 800 MG TABLET PO SCH ×3 (09:31→17:46)
[2020-03-10] MEDS: INSULIN LISPRO 100 UNIT/ML SUBCUT SCH ×4 (09:37→21:05)
[2020-03-10] MEDS ORDERED: VANCOMYCIN INJ 1,000 MG in SODIUM CHLORIDE 0.9% 250 ML IV PRN (14:00)
[2020-03-10] MEDS: cloNIDine 0.1 MG TABLET PO SCH ×2 (15:00→21:05)
[2020-03-10] MEDS ORDERED: VANCOMYCIN INJ 1,000 MG in SODIUM CHLORIDE 0.9% 250 ML IV ONE (17:00)
[2020-03-10] MEDS: TAMSULOSIN 0.4 MG CAPSULE PO SCH (17:45)
[2020-03-10] MEDS: cefTRIAXone 1,000 MG in SYRINGE 1 EACH IV SCH (17:47)
[2020-03-11 05:39] LABS: Basophils % 0.3 % (0.0-0.8); Hematocrit 33.7 VOL% (42.0-52.0); Hemoglobin 11.2 GM/DL (14.0-18.0); Immature Granulocytes % 0.7 %; Immature Granulocytes Absolute 0.02 #; Lymphocytes # 0.3 10*3/uL (1.4-4.0); Lymphocytes % 10.7 % (21.2-54.2); Mean Corpuscular HGB Conc 33.2 GM/DL (32-36); Mean Corpuscular Volume 85.1 FL (87-102); Mean Platelet Volume 12.4 FL (9.6-12.0); Monocytes % 4.7 % (1.7-12.7); Neutrophils % 83.6 % (38.7-73.9); Platelet Count 127 T/CUMM (130-400); Red Blood Count 3.96 MC/CUMM (3.8-5.5); Red Cell Distribution Width 14.2 % (9.3-17.3)
[2020-03-11 05:55] LABS: INR 1.7; PT Patient Result 17.7 SECS (9.8-11.9)
[2020-03-11 05:59] LABS: Calcium 8.7 MG/DL (8.5-10.1); Osmolality,Calculated 288.4 MOS/KG (273-304)
[2020-03-11] MEDS: SEVELAMER CARBONATE 800 MG TABLET PO SCH ×3 (08:31→17:24)
[2020-03-11] MEDS: INSULIN LISPRO 100 UNIT/ML SUBCUT SCH ×4 (08:31→20:20)
[2020-03-11] MEDS: NEBIVOLOL 10 MG TABLET PO SCH (10:55)
[2020-03-11] MEDS: cloNIDine 0.1 MG TABLET PO SCH ×3 (10:55→20:20)
[2020-03-11] MEDS: DEXAMETHASONE 4 MG/1 ML VIAL IV SCH (14:24)
[2020-03-11] MEDS: FINASTERIDE 5 MG TABLET PO SCH (14:24)
[2020-03-11] MEDS: allopurinoL 300 MG TABLET PO SCH (14:25)
[2020-03-11] MEDS: PANTOPRAZOLE 40 MG TABLET PO SCH (14:25)
[2020-03-11] MEDS ORDERED: TUBERCULIN SKIN TEST 0.1 ML SYRINGE INTRADERM ONE (14:32)
[2020-03-11 14:58] LABS: ABG Base Excess 3.1 MMOL/L (-2.5-2.5); ABG HCO3 27.1 MMOL/L (20-26); ABG Oxygen Saturation 94.8 % (95-100); ABG PCO2 29.3 MM HG (35-48); ABG PH 7.538 (7.35-7.45); ABG PO2 71.3 MM HG (80-95); ABG TCO2 21.9 MMOL/L (23-27)
[2020-03-11] MEDS ORDERED: VANCOMYCIN INJ 1,000 MG in SODIUM CHLORIDE 0.9% 250 ML IV ONE (15:00)
[2020-03-11 16:02] LABS: Calcium 8.7 MG/DL (8.5-10.1)
[2020-03-11] MEDS: cefTRIAXone 1,000 MG in SYRINGE 1 EACH IV SCH (16:47)
[2020-03-11] MEDS: WARFARIN 5 MG TABLET PO SCH (17:24)
[2020-03-11] MEDS: TAMSULOSIN 0.4 MG CAPSULE PO SCH (17:24)
[2020-03-11] MEDS ORDERED: HALOPERIDOL 5 MG/ML AMP IM PRN (18:23)
[2020-03-11] MEDS: DIAZEPAM 10 MG/2 ML SYRINGE IV PRN ×2 (18:36→22:01)
[2020-03-11] MEDS: ACETAMINOPHEN 325 MG TABLET PO PRN (20:23)
[2020-03-12 05:27] LABS: Hematocrit 32.9 VOL% (42.0-52.0); Immature Granulocytes % 1.1 %; Immature Granulocytes Absolute 0.04 #; Lymphocytes # 0.3 10*3/uL (1.4-4.0); Lymphocytes % 9.5 % (21.2-54.2); Mean Corpuscular HGB Conc 33.4 GM/DL (32-36); Mean Corpuscular Volume 86.1 FL (87-102); Mean Platelet Volume 11.4 FL (9.6-12.0); Monocytes % 6.6 % (1.7-12.7); Neutrophils % 82.8 % (38.7-73.9); Platelet Count 148 T/CUMM (130-400); Red Blood Count 3.82 MC/CUMM (3.8-5.5); Red Cell Distribution Width 14.3 % (9.3-17.3); White Blood Count 3.5 T/CUMM (4-12)
[2020-03-12 05:43] LABS: Calcium 8.2 MG/DL (8.5-10.1); Osmolality,Calculated 285.4 MOS/KG (273-304)
[2020-03-12 05:47] LABS: INR 1.7
[2020-03-12] MEDS: INSULIN LISPRO 100 UNIT/ML SUBCUT SCH ×4 (08:34→20:55)
[2020-03-12] MEDS: allopurinoL 300 MG TABLET PO SCH (08:35)
[2020-03-12] MEDS: cloNIDine 0.1 MG TABLET PO SCH ×3 (08:36→21:24)
[2020-03-12] MEDS: FINASTERIDE 5 MG TABLET PO SCH (08:36)
[2020-03-12] MEDS: PANTOPRAZOLE 40 MG TABLET PO SCH (08:38)
[2020-03-12] MEDS: SEVELAMER CARBONATE 800 MG TABLET PO SCH ×3 (08:38→17:31)
[2020-03-12] MEDS: NEBIVOLOL 10 MG TABLET PO SCH (09:04)
[2020-03-12] MEDS: cefTRIAXone 1,000 MG in SYRINGE 1 EACH IV SCH (15:48)
[2020-03-12] MEDS: TAMSULOSIN 0.4 MG CAPSULE PO SCH (17:28)
[2020-03-13 05:47] LABS: INR 1.9; PT Patient Result 19.3 SECS (9.8-11.9)
[2020-03-13 07:56] LABS: Eosinophils % 0.3 % (0.00-10.9); Hemoglobin 11.2 GM/DL (14.0-18.0); Immature Granulocytes % 1.7 %; Immature Granulocytes Absolute 0.06 #; Lymphocytes # 0.4 10*3/uL (1.4-4.0); Mean Corpuscular HGB Conc 33.9 GM/DL (32-36); Mean Corpuscular Volume 83.5 FL (87-102); Mean Platelet Volume 11.3 FL (9.6-12.0); Monocytes % 3.9 % (1.7-12.7); Neutrophils % 84.1 % (38.7-73.9); Platelet Count 163 T/CUMM (130-400); Red Blood Count 3.95 MC/CUMM (3.8-5.5); Red Cell Distribution Width 14.4 % (9.3-17.3); White Blood Count 3.6 T/CUMM (4-12)
[2020-03-13 08:22] LABS: Albumin 2.5 G/DL (3.4-5.0); Bilirubin,Total 0.4 MG/DL (0.2-1.0); Ferritin 3949.5 ng/ml (26-388); Osmolality,Calculated 281.2 MOS/KG (273-304); Total Protein 7.3 G/DL (6.4-8.3)
[2020-03-13] MEDS: NEBIVOLOL 10 MG TABLET PO SCH (08:42)
[2020-03-13] MEDS: ACETAMINOPHEN 325 MG TABLET PO PRN (08:42)
[2020-03-13] MEDS: INSULIN LISPRO 100 UNIT/ML SUBCUT SCH ×4 (08:42→20:38)
[2020-03-13] MEDS: SEVELAMER CARBONATE 800 MG TABLET PO SCH ×3 (08:42→18:05)
[2020-03-13] MEDS: FINASTERIDE 5 MG TABLET PO SCH (08:42)
[2020-03-13] MEDS: allopurinoL 300 MG TABLET PO SCH (08:42)
[2020-03-13] MEDS: cloNIDine 0.1 MG TABLET PO SCH ×3 (08:43→20:40)
[2020-03-13] MEDS: PANTOPRAZOLE 40 MG TABLET PO SCH (08:43)
[2020-03-13 11:13] LABS: Sedimentation Rate-Westergren 60 MM/HR (0-20)
[2020-03-13] MEDS: TAMSULOSIN 0.4 MG CAPSULE PO SCH (18:05)
[2020-03-13] MEDS: cefTRIAXone 1,000 MG in SYRINGE 1 EACH IV SCH (18:05)
[2020-03-13] MEDS: WARFARIN 5 MG TABLET PO SCH (18:05)
[2020-03-14 05:48] LABS: Basophils % 0.3 % (0.0-0.8); Eosinophils % 0.3 % (0.00-10.9); Hematocrit 34.3 VOL% (42.0-52.0); Hemoglobin 11.3 GM/DL (14.0-18.0); Immature Granulocytes % 1.3 %; Immature Granulocytes Absolute 0.05 #; Lymphocytes # 0.4 10*3/uL (1.4-4.0); Lymphocytes % 10.6 % (21.2-54.2); Mean Corpuscular HGB Conc 32.9 GM/DL (32-36); Mean Corpuscular Volume 85.1 FL (87-102); Mean Platelet Volume 11.6 FL (9.6-12.0); Monocytes % 3.1 % (1.7-12.7); Neutrophils % 84.4 % (38.7-73.9); Platelet Count 197 T/CUMM (130-400); Red Blood Count 4.03 MC/CUMM (3.8-5.5); Red Cell Distribution Width 14.3 % (9.3-17.3); White Blood Count 3.9 T/CUMM (4-12)
[2020-03-14 05:57] LABS: PT Patient Result 20.4 SECS (9.8-11.9)
[2020-03-14 06:28] LABS: Lymphocytes 11 % (20-55); Nucleated Red Blood Cells 1 (0-5); Platelet Estimate Normal; Segmented Neutrophils 86 % (50-85); Total Cells Counted 100
[2020-03-14 06:29] LABS: Hypochromasia Slight; Microcytosis Slight
[2020-03-14 06:49] LABS: Albumin 2.5 G/DL (3.4-5.0); Bilirubin,Total 0.7 MG/DL (0.2-1.0); Calcium 8.6 MG/DL (8.5-10.1); Ferritin 5661.3 ng/ml (26-388); Osmolality,Calculated 279.8 MOS/KG (273-304); Total Protein 7.6 G/DL (6.4-8.3)
[2020-03-14 06:57] LABS: Sedimentation Rate-Westergren 59 MM/HR (0-20)
[2020-03-14] MEDS ORDERED: VANCOMYCIN INJ 1,000 MG in SODIUM CHLORIDE 0.9% 250 ML IV ONE (09:00)
[2020-03-14] MEDS: FINASTERIDE 5 MG TABLET PO SCH (09:01)
[2020-03-14] MEDS: cloNIDine 0.1 MG TABLET PO SCH ×3 (09:02→21:25)
[2020-03-14] MEDS: SEVELAMER CARBONATE 800 MG TABLET PO SCH ×3 (09:02→16:51)
[2020-03-14] MEDS: allopurinoL 300 MG TABLET PO SCH (09:02)
[2020-03-14] MEDS: PANTOPRAZOLE 40 MG TABLET PO SCH (09:02)
[2020-03-14] MEDS: NEBIVOLOL 10 MG TABLET PO SCH (09:02)
[2020-03-14 09:57] LABS: ABG Base Excess 0.3 MMOL/L (-2.5-2.5); ABG HCO3 24.7 MMOL/L (20-26); ABG Oxygen Saturation 97.6 % (95-100); ABG PCO2 34.8 MM HG (35-48); ABG PH 7.446 (7.35-7.45); ABG TCO2 21.4 MMOL/L (23-27); Allen Test Positive
[2020-03-14] MEDS: INSULIN LISPRO 100 UNIT/ML SUBCUT SCH ×4 (10:09→20:56)
[2020-03-14] MEDS: DILTIAZEM 30 MG TABLET PO SCH ×2 (12:34→21:24)
[2020-03-14] MEDS: cefTRIAXone 1,000 MG in SYRINGE 1 EACH IV SCH (16:50)
[2020-03-14] MEDS: WARFARIN 5 MG TABLET PO SCH (18:03)
[2020-03-14] MEDS: TAMSULOSIN 0.4 MG CAPSULE PO SCH (18:03)
[2020-03-15 04:29] LABS: ABG HCO3 22.6 MMOL/L (20-26); ABG Oxygen Saturation 96.3 % (95-100); ABG PCO2 30.2 MM HG (35-48); ABG PH 7.492 (7.35-7.45); ABG PO2 80.1 MM HG (80-95); ABG TCO2 23.5 MMOL/L (23-27); Allen Test Positive
[2020-03-15 05:12] LABS: Basophils % 0.6 % (0.0-0.8); Eosinophils # 0.1 10*3/uL (0.0-0.87); Eosinophils % 2.9 % (0.00-10.9); Hematocrit 34.3 VOL% (42.0-52.0); Hemoglobin 11.3 GM/DL (14.0-18.0); Immature Granulocytes % 1.7 %; Immature Granulocytes Absolute 0.06 #; Lymphocytes # 0.4 10*3/uL (1.4-4.0); Lymphocytes % 11.4 % (21.2-54.2); Mean Corpuscular HGB Conc 32.9 GM/DL (32-36); Mean Corpuscular Volume 85.5 FL (87-102); Mean Platelet Volume 11.4 FL (9.6-12.0); Monocytes % 2.9 % (1.7-12.7); Neutrophils % 80.5 % (38.7-73.9); Platelet Count 217 T/CUMM (130-400); Red Blood Count 4.01 MC/CUMM (3.8-5.5); Red Cell Distribution Width 14.4 % (9.3-17.3); White Blood Count 3.5 T/CUMM (4-12)
[2020-03-15 05:53] LABS: Burr Cells Slight; Hypochromasia Slight; Microcytosis Slight; Ovalocytes Slight; Platelet Estimate Adequate
[2020-03-15 05:55] LABS: Albumin 2.2 G/DL (3.4-5.0); Bilirubin,Total 0.6 MG/DL (0.2-1.0); Calcium 8.2 MG/DL (8.5-10.1); Ferritin 6365.8 ng/ml (26-388); Osmolality,Calculated 288.5 MOS/KG (273-304); Total Protein 7.2 G/DL (6.4-8.3)
[2020-03-15 07:03] LABS: Sedimentation Rate-Westergren 67 MM/HR (0-20)
[2020-03-15] MEDS: INSULIN LISPRO 100 UNIT/ML SUBCUT SCH ×4 (07:54→20:08)
[2020-03-15] MEDS: cloNIDine 0.1 MG TABLET PO SCH ×3 (08:38→20:22)
[2020-03-15] MEDS: NEBIVOLOL 10 MG TABLET PO SCH (08:38)
[2020-03-15] MEDS: FINASTERIDE 5 MG TABLET PO SCH (08:38)
[2020-03-15] MEDS: SEVELAMER CARBONATE 800 MG TABLET PO SCH ×3 (08:38→17:08)
[2020-03-15] MEDS: DILTIAZEM 30 MG TABLET PO SCH ×2 (08:38→20:21)
[2020-03-15] MEDS: allopurinoL 300 MG TABLET PO SCH (08:38)
[2020-03-15] MEDS: PANTOPRAZOLE 40 MG TABLET PO SCH (08:39)
[2020-03-15] MEDS: TAMSULOSIN 0.4 MG CAPSULE PO SCH (17:08)
[2020-03-15] MEDS: cefTRIAXone 1,000 MG in SYRINGE 1 EACH IV SCH (17:08)
[2020-03-16 04:37] LABS: Allen Test Positive
[2020-03-16 04:38] LABS: ABG Base Excess -1.4 MMOL/L (-2.5-2.5); ABG HCO3 21.5 MMOL/L (20-26); ABG Oxygen Saturation 84.6 % (95-100); ABG PCO2 30.4 MM HG (35-48); ABG PH 7.467 (7.35-7.45); ABG PO2 49.4 MM HG (80-95); ABG TCO2 22.4 MMOL/L (23-27)
[2020-03-16 05:55] LABS: Basophils % 0.2 % (0.0-0.8); Eosinophils # 0.1 10*3/uL (0.0-0.87); Eosinophils % 1.7 % (0.00-10.9); Hematocrit 30.9 VOL% (42.0-52.0); Hemoglobin 10.5 GM/DL (14.0-18.0); Immature Granulocytes % 1.3 %; Immature Granulocytes Absolute 0.06 #; Lymphocytes # 0.5 10*3/uL (1.4-4.0); Lymphocytes % 10.6 % (21.2-54.2); Mean Corpuscular Volume 83.1 FL (87-102); Mean Platelet Volume 11.2 FL (9.6-12.0); Monocytes % 1.9 % (1.7-12.7); Neutrophils % 84.3 % (38.7-73.9); Platelet Count 234 T/CUMM (130-400); Red Blood Count 3.72 MC/CUMM (3.8-5.5); Red Cell Distribution Width 14.3 % (9.3-17.3); White Blood Count 4.6 T/CUMM (4-12)
[2020-03-16 05:57] LABS: INR 2.9; PT Patient Result 29.4 SECS (9.8-11.9)
[2020-03-16 06:24] LABS: Eosinophils 1 % (0-10); Hypochromasia Slight; Lymphocytes 12 % (20-55); Microcytosis Slight; Nucleated Red Blood Cells 3 (0-5); Platelet Estimate Normal; Segmented Neutrophils 85 % (50-85); Total Cells Counted 100
[2020-03-16 07:04] LABS: Sedimentation Rate-Westergren 105 MM/HR (0-20)
[2020-03-16 08:43] LABS: Albumin 2.1 G/DL (3.4-5.0); Bilirubin,Total 0.7 MG/DL (0.2-1.0); Calcium 8.5 MG/DL (8.5-10.1); Osmolality,Calculated 286.2 MOS/KG (273-304); Total Protein 7.1 G/DL (6.4-8.3)
[2020-03-16] MEDS: DILTIAZEM 30 MG TABLET PO SCH ×2 (08:43→20:50)
[2020-03-16] MEDS: INSULIN LISPRO 100 UNIT/ML SUBCUT SCH ×4 (08:43→20:50)
[2020-03-16] MEDS: SEVELAMER CARBONATE 800 MG TABLET PO SCH ×3 (08:43→17:10)
[2020-03-16] MEDS: cloNIDine 0.1 MG TABLET PO SCH ×3 (08:43→20:50)
[2020-03-16] MEDS: FINASTERIDE 5 MG TABLET PO SCH (08:43)
[2020-03-16] MEDS: NEBIVOLOL 10 MG TABLET PO SCH (08:43)
[2020-03-16] MEDS: allopurinoL 300 MG TABLET PO SCH (08:44)
[2020-03-16] MEDS: PANTOPRAZOLE 40 MG TABLET PO SCH (08:44)
[2020-03-16] MEDS: cefTRIAXone 1,000 MG in SYRINGE 1 EACH IV SCH (15:03)
[2020-03-16] MEDS ORDERED: VANCOMYCIN INJ 1,000 MG in SODIUM CHLORIDE 0.9% 250 ML IV ONE (17:00)
[2020-03-16] MEDS: WARFARIN 5 MG TABLET PO SCH (17:10)
[2020-03-16] MEDS: TAMSULOSIN 0.4 MG CAPSULE PO SCH (17:10)
[2020-03-17 00:56] LABS: Specimen Source THROAT
[2020-03-17 04:48] LABS: ABG HCO3 25.2 MMOL/L (20-26); ABG PCO2 29.6 MM HG (35-48); ABG PH 7.503 (7.35-7.45); ABG PO2 62.3 MM HG (80-95); ABG TCO2 20.5 MMOL/L (23-27); Allen Test Positive; Pt O2 Delivery Device Other
[2020-03-17 07:11] LABS: INR 3.2; PT Patient Result 32.4 SECS (9.8-11.9)
[2020-03-17] MEDS: INSULIN LISPRO 100 UNIT/ML SUBCUT SCH ×4 (08:08→21:26)
[2020-03-17 08:12] LABS: Basophils % 0.4 % (0.0-0.8); Eosinophils # 0.1 10*3/uL (0.0-0.87); Eosinophils % 2.8 % (0.00-10.9); Hematocrit 33.5 VOL% (42.0-52.0); Hemoglobin 11.2 GM/DL (14.0-18.0); Immature Granulocytes % 2.2 %; Immature Granulocytes Absolute 0.11 #; Lymphocytes # 0.4 10*3/uL (1.4-4.0); Lymphocytes % 8.9 % (21.2-54.2); Mean Corpuscular HGB Conc 33.4 GM/DL (32-36); Mean Platelet Volume 11.3 FL (9.6-12.0); Monocytes % 2.8 % (1.7-12.7); Neutrophils % 82.9 % (38.7-73.9); Platelet Count 267 T/CUMM (130-400); Red Blood Count 3.99 MC/CUMM (3.8-5.5); Red Cell Distribution Width 14.3 % (9.3-17.3)
[2020-03-17 08:36] LABS: Eosinophils 3 % (0-10); Hypochromasia 1+; Lymphocytes 15 % (20-55); Segmented Neutrophils 77 % (50-85); Total Cells Counted 100
[2020-03-17 08:37] LABS: Microcytosis Slight; Ovalocytes Slight; Platelet Estimate Normal
[2020-03-17 09:20] LABS: Sedimentation Rate-Westergren 98 MM/HR (0-20)
[2020-03-17] MEDS: NEBIVOLOL 10 MG TABLET PO SCH (09:51)
[2020-03-17] MEDS: DILTIAZEM 30 MG TABLET PO SCH ×2 (09:52→21:00)
[2020-03-17] MEDS: SEVELAMER CARBONATE 800 MG TABLET PO SCH ×3 (09:52→17:09)
[2020-03-17] MEDS: cloNIDine 0.1 MG TABLET PO SCH ×3 (09:52→21:00)
[2020-03-17] MEDS: FINASTERIDE 5 MG TABLET PO SCH (09:52)
[2020-03-17] MEDS: PANTOPRAZOLE 40 MG TABLET PO SCH (09:52)
[2020-03-17] MEDS: allopurinoL 300 MG TABLET PO SCH (09:52)
[2020-03-17 10:29] LABS: Albumin 2.4 G/DL (3.4-5.0); Bilirubin,Total 0.5 MG/DL (0.2-1.0); Ferritin 7488.6 ng/ml (26-388); Osmolality,Calculated 282.5 MOS/KG (273-304)
[2020-03-17] MEDS: cefTRIAXone 1,000 MG in SYRINGE 1 EACH IV SCH (16:38)
[2020-03-17] MEDS: TAMSULOSIN 0.4 MG CAPSULE PO SCH (17:09)
[2020-03-18 05:25] LABS: ABG Base Excess 0.5 MMOL/L (-2.5-2.5); ABG HCO3 23.5 MMOL/L (20-26); ABG Oxygen Saturation 89.4 % (95-100); ABG PCO2 32.3 MM HG (35-48); ABG PH 7.479 (7.35-7.45); ABG PO2 57.4 MM HG (80-95); ABG TCO2 24.5 MMOL/L (23-27)
[2020-03-18] MEDS: INSULIN LISPRO 100 UNIT/ML SUBCUT SCH ×4 (07:49→23:29)
[2020-03-18] MEDS: allopurinoL 300 MG TABLET PO SCH (08:40)
[2020-03-18] MEDS: SEVELAMER CARBONATE 800 MG TABLET PO SCH ×3 (08:40→17:22)
[2020-03-18] MEDS: FINASTERIDE 5 MG TABLET PO SCH (08:40)
[2020-03-18] MEDS: DILTIAZEM 30 MG TABLET PO SCH ×2 (08:40→20:26)
[2020-03-18] MEDS: PANTOPRAZOLE 40 MG TABLET PO SCH (08:40)
[2020-03-18] MEDS: cloNIDine 0.1 MG TABLET PO SCH ×3 (09:00→20:26)
[2020-03-18] MEDS: NEBIVOLOL 10 MG TABLET PO SCH (09:00)
[2020-03-18 09:28] LABS: Basophils % 0.5 % (0.0-0.8); Eosinophils # 0.2 10*3/uL (0.0-0.87); Eosinophils % 4.6 % (0.00-10.9); Hematocrit 30.9 VOL% (42.0-52.0); Hemoglobin 10.7 GM/DL (14.0-18.0); Immature Granulocytes % 3.3 %; Immature Granulocytes Absolute 0.12 #; Lymphocytes # 0.6 10*3/uL (1.4-4.0); Lymphocytes % 16.6 % (21.2-54.2); Mean Corpuscular HGB Conc 34.6 GM/DL (32-36); Mean Corpuscular Volume 82.8 FL (87-102); Monocytes % 2.2 % (1.7-12.7); Neutrophils % 72.8 % (38.7-73.9); Platelet Count 253 T/CUMM (130-400); Red Blood Count 3.73 MC/CUMM (3.8-5.5); Red Cell Distribution Width 14.4 % (9.3-17.3); White Blood Count 3.7 T/CUMM (4-12)
[2020-03-18 09:35] LABS: INR 3.5
[2020-03-18 09:39] LABS: PT Patient Result 35.6 SECS (9.8-11.9)
[2020-03-18 10:03] LABS: Albumin 2.2 G/DL (3.4-5.0); Bilirubin,Total 0.7 MG/DL (0.2-1.0); Calcium 8.6 MG/DL (8.5-10.1); Ferritin 6924.5 ng/ml (26-388); Osmolality,Calculated 275.9 MOS/KG (273-304); Total Protein 7.8 G/DL (6.4-8.3)
[2020-03-18 10:16] LABS: Hypochromasia 1+; Microcytosis 1+; Platelet Estimate Adequate
[2020-03-18 10:32] LABS: Sedimentation Rate-Westergren 91 MM/HR (0-20)
[2020-03-18] MEDS ORDERED: VANCOMYCIN INJ 500 MG in SODIUM CHLORIDE 0.9% 100 ML IV ONE (13:00)
[2020-03-18] MEDS: cefTRIAXone 1,000 MG in SYRINGE 1 EACH IV SCH (15:13)
[2020-03-18] MEDS: TAMSULOSIN 0.4 MG CAPSULE PO SCH (17:22)
[2020-03-19 03:59] LABS: ABG Base Excess 3.9 MMOL/L (-2.5-2.5); ABG HCO3 27.9 MMOL/L (20-26); ABG Oxygen Saturation 95.8 % (95-100); ABG PCO2 40.7 MM HG (35-48); ABG PH 7.448 (7.35-7.45); ABG PO2 80.7 MM HG (80-95); ABG TCO2 25.9 MMOL/L (23-27); Allen Test Positive
[2020-03-19 05:56] LABS: Basophils % 0.4 % (0.0-0.8); Eosinophils # 0.2 10*3/uL (0.0-0.87); Eosinophils % 3.2 % (0.00-10.9); Hematocrit 29.2 VOL% (42.0-52.0); Hemoglobin 9.9 GM/DL (14.0-18.0); Immature Granulocytes % 4.4 %; Immature Granulocytes Absolute 0.21 #; Lymphocytes # 0.5 10*3/uL (1.4-4.0); Lymphocytes % 11.4 % (21.2-54.2); Mean Corpuscular HGB Conc 33.9 GM/DL (32-36); Mean Corpuscular Volume 85.1 FL (87-102); Mean Platelet Volume 10.7 FL (9.6-12.0); Monocytes % 3.2 % (1.7-12.7); Neutrophils % 77.4 % (38.7-73.9); Platelet Count 237 T/CUMM (130-400); Red Blood Count 3.43 MC/CUMM (3.8-5.5); Red Cell Distribution Width 14.6 % (9.3-17.3); White Blood Count 4.7 T/CUMM (4-12)
[2020-03-19 06:06] LABS: INR 3.5; PT Patient Result 34.9 SECS (9.8-11.9)
[2020-03-19 06:12] LABS: INR 3.5; PT Patient Result 34.8 SECS (9.8-11.9); Partial Thromboplastin Time 63.2 SECS (23.9-33.8)
[2020-03-19 06:15] LABS: Calcium 8.3 MG/DL (8.5-10.1); Osmolality,Calculated 280.4 MOS/KG (273-304)
[2020-03-19 06:34] LABS: Calcium 8.2 MG/DL (8.5-10.1)
[2020-03-19 06:35] LABS: Bilirubin,Total 0.4 MG/DL (0.2-1.0); Ferritin 5453.8 ng/ml (26-388); Osmolality,Calculated 276.7 MOS/KG (273-304); Total Protein 7.1 G/DL (6.4-8.3)
[2020-03-19 06:52] LABS: Eosinophils 6 % (0-10); Hypochromasia 1+; Lymphocytes 12 % (20-55); Segmented Neutrophils 78 % (50-85); Total Cells Counted 100
[2020-03-19 06:53] LABS: Microcytosis 1+; Platelet Estimate Normal
[2020-03-19 07:17] LABS: Sedimentation Rate-Westergren 108 MM/HR (0-20)
[2020-03-19] MEDS: INSULIN LISPRO 100 UNIT/ML SUBCUT SCH ×2 (07:27→11:18)
[2020-03-19] MEDS: SEVELAMER CARBONATE 800 MG TABLET PO SCH ×2 (08:34→11:47)
[2020-03-19] MEDS: DILTIAZEM 30 MG TABLET PO SCH (08:34)
[2020-03-19] MEDS: NEBIVOLOL 10 MG TABLET PO SCH (08:34)
[2020-03-19] MEDS: PANTOPRAZOLE 40 MG TABLET PO SCH (08:35)
[2020-03-19] MEDS: FINASTERIDE 5 MG TABLET PO SCH (08:35)
[2020-03-19] MEDS: cloNIDine 0.1 MG TABLET PO SCH (08:35)
[2020-03-19] MEDS: allopurinoL 300 MG TABLET PO SCH (08:35)
[2020-03-19] MEDS ORDERED: EPOETIN ALFA-EPBX 2,000 UNIT/ML VIAL IV SCH (10:30)
[2020-03-19 12:01] VITALS: BP 119/74
[2020-03-20] MEDS ORDERED: WARFARIN 5 MG TABLET PO SCH (18:00)
== END 2020-03-19 14:27 | disposition swing bed (61) | DRG 177 ==
LOC: N.ED 12:50 → SUATTDRO 15:36 → N.EDINP 15:36 → N.2E 16:40 → N.CC 03-11 16:57 → N.2E 03-12 14:10
PROVIDERS: ADMIT Internal Medicine; ATTEND Internal Medicine